=== PATIENT | female | born 1970 | race Caucasian/White ===

== ENCOUNTER 2017-08-08 09:10 | Inpatient (IN) | payer OTHER ==
--- NOTE | 2017-08-06 10:16 | RADRPT ---
PROCEDURE: Chest x-ray CLINICAL INDICATION: Preop TECHNIQUE: Chest single view COMPARISON: None FINDINGS: The heart is normal in size. The pulmonary vessels are normal in caliber. The lungs are clear. Th e costophrenic angles are sharp. The visualized bony thorax is unremarkable. IMPRESSION: No acute cardiopulmonary disease. RPTAT: HH .Zack Nowak MD, Date Time Electronically viewed and signed by .Zcak Nowak MD, MD on 08/06/2017 10:15 .W/
--- NOTE | 2017-08-07 14:25 | RADRPT ---
Vent Rate: 70 bpm RR Interval: 0 msec MI Interval: 180 msec QRS Duration: 70 msec QT Interval: 376 msec QTC Interval: 406 msec P-R-T [place]: 47 - 50 - 40 degrees Normal sinus rhythm Low voltage QRS Borderline ECG Electronically Signed By: Johan Deras [id number]
[~2017-08-08] VITALS: Ht 157.5 cm; Wt 74.6 kg
[2017-08-08] VITALS (35 sets, daily range): BP systolic 96–134; BP diastolic 55–79; PULSE 70–82; RESP 9–16; Ht 157.5 cm; Wt 74.6 kg
[~2017-08-08 09:10] MED LIST: EPHEDrine SULFATE 50 MG/5 ML SYG ONE
--- NOTE | 2017-08-08 10:46 | HPN ---
Date/Time of Note Date/Time of Note DATE: 08/08/17 TIME: 10:46 Interval H&P Admission Note Pt. seen H&P reviewed: No system changes PRECIOUS SHAY MD Aug 08, 2017 10:46
[2017-08-08] MEDS ORDERED: MIDAZOLAM 1 MG/ML 2 ML INJ ONE ×2 (11:25→15:21)
[2017-08-08] MEDS ORDERED: morphine SULFATE/PF (10 MG/10 ML) INJ ONE (11:27)
[2017-08-08] MEDS ORDERED: PHENYLephrine (100 MCG/ML) 5ML SYG ONE (11:43)
[2017-08-08] MEDS ORDERED: LIDOCAINE 2% (SDV) 5 ML INJ ONE (12:10)
[2017-08-08] MEDS ORDERED: ROCURONIUM 50 MG INJ ONE (12:10)
[2017-08-08] MEDS ORDERED: PROPOFOL 20 ML ONE (12:10)
[2017-08-08] MEDS ORDERED: SUCCINYLCHOLINE CHLORIDE 100 MG/5 ML SYG IV ONE (12:10)
[2017-08-08] MEDS ORDERED: ONDANSETRON 4 MG INJ ONE (12:26)
[2017-08-08] MEDS ORDERED: DEXAMETHASONE 4 MG/ML 1 ML INJ ONE (12:26)
[2017-08-08] MEDS ORDERED: FAMOTIDINE 20 MG INJ ONE (12:26)
[2017-08-08] MEDS ORDERED: THROMBIN 5000 UNIT VIAL ONE (13:50)
[2017-08-08] MEDS ORDERED: HYDROmorphONE (0.2 MG/ML) 10ML SYG IV PRN ×2 (14:30→15:30)
[2017-08-08] MEDS ORDERED: NALOXONE (0.4 MG/ML) INJ IV PRN (14:30)
[2017-08-08] MEDS ORDERED: FENTAnyl 50 MCG/ML VIAL IV PRN (14:30)
[2017-08-08] MEDS ORDERED: DIPHENHYDRAMINE 50 MG INJ IV PRN ×3 (14:30→15:30)
[2017-08-08] MEDS ORDERED: HYDROmorphONE 0.5 MG/0.5 ML SYG IV PRN ×2 (14:30)
[2017-08-08] MEDS ORDERED: ONDANSETRON 4 MG INJ IV PRN ×2 (14:30)
[2017-08-08] MEDS ORDERED: PROCHLORPERAZINE 10 MG INJ IV PRN (14:30)
[2017-08-08] MEDS ORDERED: MEPERIDINE 25 MG INJ IV PRN (14:30)
[2017-08-08] MEDS ORDERED: SUGAMMADEX SODIUM 200 MG/2 ML VIAL IV ONE ×2 (14:43→14:47)
[2017-08-08] MEDS ORDERED: FENTAnyl 50 MCG/ML VIAL ONE (15:05)
--- NOTE | 2017-08-08 15:16 | OPPN ---
Date/Time of Note Date/Time of Note DATE: 08/08/17 TIME: 15:13 Operative Report Planned Procedure Procedure date Aug 08, 2017 Procedure(s) Ex lap, MANNY/BSO, omentectomy, appy, lymph node dissection, tumor debulking, IP port placement. Performed by Althea Stephenson MD Energy Conservation Specialist none Pre-procedure diagnosis Pelvic mass Anesthesia Type: general spinal Post-Procedure Post-procedure diagnosis Ovarian cancer Findings ROV at 25 cm. Tumor in bladder peritoneu, and cul-de-sac, omental nodules, bulky lymph nodes in pelvic region, bilaterally. NO diaphram tumor. Prior cholecystectomy Estimated Blood Loss: 300 - 400 mls Specimen(s) uterus, cervix, ovaries, lymph nodes, omentum, peritoneum, Grafts/Implant(s) none Complication(s) none PRECIOUS STEPHENSON MD Aug 08, 2017 15:16
[2017-08-08] MEDS ORDERED: MIDAZOLAM 1 MG/ML 2 ML INJ IV PRN (15:30)
[2017-08-08 16:09] LABS: BASOPHILS % 0.2 % (0.0-2.0); EOSINOPHILS % 0.1 % (0.0-7.0); HEMATOCRIT 36.1 % (37.0-47.0); HEMOGLOBIN 11.2 g/dl (12.0-16.0); LYMPHOCYTES # 1.3 10^3/ul (0.8-2.9); LYMPHOCYTES % 11.3 % (15.0-51.0); MEAN CORPUSCULAR HEMOGLOBIN 26.8 pg (29.0-33.0); MEAN CORPUSCULAR VOLUME 86.4 fl (82.0-101.0); MEAN PLATELET VOLUME 11.1 fl (7.4-10.4); MONOCYTE # 0.3 10^3/ul (0.3-0.9); MONOCYTES % 2.5 % (0.0-11.0); NEUTROPHIL # 9.7 10^3/ul (1.6-7.5); NEUTROPHILS % 85.7 % (39.0-77.0); PLATELET COUNT 343 10^3/UL (140-415); RED BLOOD COUNT 4.18 10^6/ul (4.20-5.40); RED CELL DISTRIBUTION WIDTH 12.9 % (11.5-14.5); WHITE BLOOD COUNT 11.3 10^3/ul (4.8-10.8)
[2017-08-08 16:31] LABS: CALCIUM 7.9 mg/dl (8.4-10.2); CREATININE 0.52 mg/dl (0.44-1.00)
[2017-08-08] MEDS: D5-NS + KCL 20 MEQ 1,000 ML IV SCH ×2 (18:55→23:07)
[2017-08-08] MEDS ORDERED: FAMOTIDINE 20 MG INJ IV ONE (20:30)
[2017-08-08] MEDS: FAMOTIDINE 20 MG TAB PO SCH (20:36)
[2017-08-09 02:48] VITALS: BP 96/53; RESP 14
[2017-08-09] MEDS: D5-NS + KCL 20 MEQ 1,000 ML IV SCH ×4 (03:08→22:22)
[2017-08-09 05:11] VITALS: BP 120/57
[2017-08-09] MEDS: HYDROmorphONE 1 MG/ML SYG IV PRN ×6 (05:12→18:51)
[2017-08-09 05:51] LABS: BASOPHILS % 0.1 % (0.0-2.0); HEMATOCRIT 31.7 % (37.0-47.0); HEMOGLOBIN 9.8 g/dl (12.0-16.0); LYMPHOCYTES # 1.3 10^3/ul (0.8-2.9); LYMPHOCYTES % 12.4 % (15.0-51.0); MEAN CORPUSCULAR HEMOGLOBIN 26.5 pg (29.0-33.0); MEAN CORPUSCULAR HGB CONC 30.9 g/dl (32.0-37.0); MEAN CORPUSCULAR VOLUME 85.7 fl (82.0-101.0); MEAN PLATELET VOLUME 11.2 fl (7.4-10.4); MONOCYTE # 0.8 10^3/ul (0.3-0.9); MONOCYTES % 7.6 % (0.0-11.0); NEUTROPHIL # 8.2 10^3/ul (1.6-7.5); NEUTROPHILS % 79.6 % (39.0-77.0); PLATELET COUNT 314 10^3/UL (140-415); RED CELL DISTRIBUTION WIDTH 13.1 % (11.5-14.5); WHITE BLOOD COUNT 10.3 10^3/ul (4.8-10.8)
[2017-08-09 06:32] LABS: ALBUMIN 2.4 g/dl (3.3-4.9); ALBUMIN/GLOBULIN RATIO 0.85; BILIRUBIN,INDIRECT 0.2 mg/dl (0-1.1); BILIRUBIN,TOTAL 0.2 mg/dl (0.2-1.3); CALCIUM 8.1 mg/dl (8.4-10.2); CREATININE 0.57 mg/dl (0.44-1.00); POTASSIUM 4.9 mmol/L (3.5-5.1); TOTAL PROTEIN 5.2 g/dl (6.1-8.1)
[2017-08-09 07:44] VITALS: BP 119/61; RESP 18
[2017-08-09] MEDS: ENOXAPARIN 40 MG/0.4 ML SYG SC SCH (07:57)
[2017-08-09] MEDS: FAMOTIDINE 20 MG TAB PO SCH ×2 (09:13→21:33)
--- NOTE | 2017-08-09 11:28 | PN ---
Date/Time of Note Date/Time of Note DATE: 08/09/17 TIME: 11:09 Assessment/Plan VTE Prophylaxis VTE Prophylaxis Intervention: LMWH Lines/Catheters IV Catheter Type (from Nrsg): Saline Lock Urinary Cath still in place: Yes Reason Cath still needed: other (indicate) (Postoperative) Assessment/Plan Assessment/Plan 46-year-old female: 1. Ovarian cancer with pelvic mass, status post exploratory laparotomy with MANNY /BSO, omentectomy, appendectomy, lymph node dissection, tumor debulking and IP port placement. POD#1 Patient hemodynamically stable, currently n.p.o. on IV fluids. Right lower quadrant drain in place Pain control Follow-up further recommendations from GILL BOX OPERATOR/ONC Dr. Stephenson Prophylaxis: Lovenox for DVT prophylaxis, Pepcid for GI prophylaxis Disposition: Follow-up recommendations from Dr. Stephenson, further disposition per GILL BOX OPERATOR /ONC Subjective 24 Hr Interval Summary Free Text/Dictation Patient is POD#1 s/p Ex lap, MANNY/BSO, omentectomy, appendectomy, lymph node dissection, tumor debulking and IP port placement. Patient not passing gas yet, otherwise feels hungry and pain control is ongoing. Exam/Review of Systems Vital Signs Vitals Vital Signs Date Time Temp Pulse Resp B/P Pulse Ox O2 Delivery O2 Flow Rate FiO2 08/09/17 07:44 98.0 101 18 119/61 98 08/08/17 17:50 Nasal Cannula 3.0 Intake and Output 08/08/17 08/08/17 08/09/17 15:00 23:00 07:00 Intake Total 4400 ml 1875 ml Output Total 400 ml 400 ml 780 ml Balance -400 ml 4000 ml 1095 ml Exam Constitutional: alert, oriented, well developed Respiratory: clear to auscultation, normal air movement Cardiovascular: nl pulses, regular rate and rhythm Gastrointestinal: other (Right lower quadrant drain in place, laparotomy incision with dressing over it.), soft, tender (Diffuse) Musculoskeletal: nl extremities to inspection Extremities: normal pulses, other (No edema, clubbing or cyanosis) Neurological: CERTIFIED LACTATION EDUCATOR II-XII intact, lethargic (slightly sedated ), nl mental status, nl speech Results Result Diagram: 08/09/17 0459 08/09/17 0459 Results 24 hrs Laboratory Tests Test 08/08/17 15:30 08/09/17 04:59 08/09/17 06:43 White Blood Count 11.3 H 10.3 Red Blood Count 4.18 L 3.70 L Hemoglobin 11.2 L 9.8 L Hematocrit 36.1 L 31.7 L Mean Corpuscular Volume 86.4 85.7 Mean Corpuscular Hemoglobin 26.8 L 26.5 L Mean Corpuscular Hemoglobin Concent 31.0 L 30.9 L Red Cell Distribution Width 12.9 13.1 Platelet Count 343 314 Mean Platelet Volume 11.1 H 11.2 H Neutrophils % 85.7 H 79.6 H Lymphocytes % 11.3 L 12.4 L Monocytes % 2.5 7.6 Eosinophils % 0.1 0.0 Basophils % 0.2 0.1 Nucleated Red Blood Cells % 0.0 0.0 Neutrophils # 9.7 H 8.2 H Lymphocytes # 1.3 1.3 Monocytes # 0.3 0.8 Eosinophils # 0.0 0.0 Basophils # 0.0 0.0 Nucleated Red Blood Cells # 0.0 0.0 Sodium Level 138 142 Potassium Level 4.0 4.9 Chloride Level 103 105 Carbon Dioxide Level 29 32 H Anion Gap 10 10 Blood Urea Nitrogen 5 L 5 L Creatinine 0.52 0.57 Glucose Level 154 135 Calcium Level 7.9 L 8.1 L Total Bilirubin 0.2 Direct Bilirubin 0.00 Indirect Bilirubin 0.2 Aspartate Amino Transf (AST/SGOT) 21 Alanine Aminotransferase (ALT/SGPT) 30 Alkaline Phosphatase 56 Total Protein 5.2 L Albumin 2.4 L Globulin 2.80 Albumin/Globulin Ratio 0.85 Lab Scanned Report LAB Medications Medications Current Medications Diphenhydramine HCl (Benadryl) 25 mg Q4H PRN IV PRURITUS; Start 08/08/17 at 14 :30; Stop 08/09/17 at 11:30 Ondansetron HCl (Zofran Inj) 4 mg Q6H PRN IV NAUSEA AND/OR VOMITING; Start at 14:30; Stop 08/09/17 at 11:30 Naloxone HCl (Narcan) 0.2 mg Q2M PRN IV FOR RESP RATE 8 OR LESS; Start at 14:30; Stop 08/09/17 at 11:30 Acetaminophen/ Hydrocodone Bitart ([place] (5/325)) 1 tab Q6H PRN PO PAIN LEVEL 6 -10; Start 08/08/17 at 15:30 Acetaminophen/ Hydrocodone Bitart ([place] (10/325)) 1 tab Q6H PRN PO PAIN; Start 08/08/17 at 15:30 Diphenhydramine HCl (Benadryl) 25 mg Q6H PRN IV ITCHING; Start 08/08/17 at 15: 30 Ondansetron HCl (Zofran Inj) 4 mg Q6H PRN IV NAUSEA AND/OR VOMITING; Start at 15:30 Famotidine 20 mg 20 mg BID PO Last administered on 08/09/17 09:13; Admin Dose 20 MG; Start 08/08/17 at 21:00 Potassium Chloride/Dextrose/ Sod Cl (D5-NS + KCl 20 Meq) 1,000 ml @ 125 mls/hr Q8H IV Last administered on 08/09/17 03:08; Admin Dose 125 MLS/HR; Start at 15:07 Enoxaparin Sodium (Lovenox) 40 mg DAILY@07 SC Last administered on 08/09/17 07:57; Admin Dose 40 MG; Start 08/09/17 at 07:00 Hydromorphone HCl (Dilaudid) 1 mg Q2 PRN IV pain Last administered on 08:01; Admin Dose 1 MG; Start 08/08/17 at 20:30 EZE ASTORGA Aug 09, 2017 11:20
[2017-08-09 14:58] VITALS: BP 113/56; RESP 16
[2017-08-09] MEDS ORDERED: POTASSIUM CHLORIDE 250 ML IVPB ONE (17:00)
--- NOTE | 2017-08-09 19:15 | PN ---
Date/Time of Note Date/Time of Note DATE: 08/09/17 TIME: 19:14 Assessment/Plan VTE Prophylaxis VTE Prophylaxis Intervention: LMWH, SCD's Lines/Catheters IV Catheter Type (from Nrsg): Saline Lock Urinary Cath still in place: Yes Reason Cath still needed: other (indicate) Assessment/Plan Assessment/Plan POD #1, op findings d/w patient. Good UO. RECREATION ENGINEER, clear liquid diet, Keep belcher, Lovenox. Subjective 24 Hr Interval Summary Free Text/Dictation Poor pain control, Exam/Review of Systems Vital Signs Vitals Vital Signs Date Time Temp Pulse Resp B/P Pulse Ox O2 Delivery O2 Flow Rate FiO2 08/09/17 14:58 99.2 102 16 113/56 96 08/08/17 17:50 Nasal Cannula 3.0 Intake and Output 08/08/17 08/08/17 08/09/17 15:00 23:00 07:00 Intake Total 4400 ml 1875 ml Output Total 400 ml 400 ml 780 ml Balance -400 ml 4000 ml 1095 ml Exam Gastrointestinal: soft Results Result Diagram: 08/09/17 0459 08/09/17 0459 Results 24 hrs Laboratory Tests Test 08/09/17 04:59 08/09/17 06:43 White Blood Count 10.3 Red Blood Count 3.70 L Hemoglobin 9.8 L Hematocrit 31.7 L Mean Corpuscular Volume 85.7 Mean Corpuscular Hemoglobin 26.5 L Mean Corpuscular Hemoglobin Concent 30.9 L Red Cell Distribution Width 13.1 Platelet Count 314 Mean Platelet Volume 11.2 H Neutrophils % 79.6 H Lymphocytes % 12.4 L Monocytes % 7.6 Eosinophils % 0.0 Basophils % 0.1 Nucleated Red Blood Cells % 0.0 Neutrophils # 8.2 H Lymphocytes # 1.3 Monocytes # 0.8 Eosinophils # 0.0 Basophils # 0.0 Nucleated Red Blood Cells # 0.0 Sodium Level 142 Potassium Level 4.9 Chloride Level 105 Carbon Dioxide Level 32 H Anion Gap 10 Blood Urea Nitrogen 5 L Creatinine 0.57 Glucose Level 135 Calcium Level 8.1 L Total Bilirubin 0.2 Direct Bilirubin 0.00 Indirect Bilirubin 0.2 Aspartate Amino Transf (AST/SGOT) 21 Alanine Aminotransferase (ALT/SGPT) 30 Alkaline Phosphatase 56 Total Protein 5.2 L Albumin 2.4 L Globulin 2.80 Albumin/Globulin Ratio 0.85 Lab Scanned Report LAB Medications Medications Current Medications Acetaminophen/ Hydrocodone Bitart ([place] (5/325)) 1 tab Q6H PRN PO PAIN LEVEL 6 -10; Start 08/08/17 at 15:30 Acetaminophen/ Hydrocodone Bitart ([place] (10/325)) 1 tab Q6H PRN PO PAIN; Start 08/08/17 at 15:30 Diphenhydramine HCl (Benadryl) 25 mg Q6H PRN IV ITCHING; Start 08/08/17 at 15: 30 Ondansetron HCl (Zofran Inj) 4 mg Q6H PRN IV NAUSEA AND/OR VOMITING; Start at 15:30 Famotidine 20 mg 20 mg BID PO Last administered on 08/09/17 09:13; Admin Dose 20 MG; Start 08/08/17 at 21:00 Potassium Chloride/Dextrose/ Sod Cl (D5-NS + KCl 20 Meq) 1,000 ml @ 125 mls/hr Q8H IV Last administered on 08/09/17 13:32; Admin Dose 125 MLS/HR; Start at 15:07 Enoxaparin Sodium (Lovenox) 40 mg DAILY@07 SC Last administered on 08/09/17 07:57; Admin Dose 40 MG; Start 08/09/17 at 07:00 Hydromorphone HCl (Dilaudid) 1 mg Q2 PRN IV pain Last administered on 18:51; Admin Dose 1 MG; Start 08/08/17 at 20:30 PRECIOUS SHAY MD Aug 09, 2017 19:15
[2017-08-09] MEDS ORDERED: NALOXONE (0.4 MG/ML) INJ IV PRN (19:30)
[2017-08-09 19:40] VITALS: BP 120/57; RESP 18
[2017-08-09] MEDS: HYDROmorphONE 0.2 MG/ML PCA IV SCH (20:54)
[2017-08-10 00:01] VITALS: BP 123/65; PULSE 85; RESP 18
[2017-08-10 02:10] VITALS: BP 131/61; RESP 18
[2017-08-10 05:02] VITALS: BP 127/69; PULSE 94; RESP 19
[2017-08-10 06:38] LABS: BASOPHILS % 0.1 % (0.0-2.0); EOSINOPHILS % 0.3 % (0.0-7.0); HEMATOCRIT 33.5 % (37.0-47.0); HEMOGLOBIN 10.3 g/dl (12.0-16.0); LYMPHOCYTES # 1.4 10^3/ul (0.8-2.9); LYMPHOCYTES % 10.7 % (15.0-51.0); MEAN CORPUSCULAR HEMOGLOBIN 26.8 pg (29.0-33.0); MEAN CORPUSCULAR HGB CONC 30.7 g/dl (32.0-37.0); MEAN PLATELET VOLUME 11.5 fl (7.4-10.4); MONOCYTE # 0.9 10^3/ul (0.3-0.9); MONOCYTES % 6.8 % (0.0-11.0); NEUTROPHILS % 81.7 % (39.0-77.0); PLATELET COUNT 322 10^3/UL (140-415); RED BLOOD COUNT 3.85 10^6/ul (4.20-5.40); RED CELL DISTRIBUTION WIDTH 13.2 % (11.5-14.5); WHITE BLOOD COUNT 13.5 10^3/ul (4.8-10.8)
[2017-08-10 06:39] LABS: MAGNESIUM 1.7 mg/dl (1.7-2.5)
[2017-08-10 06:40] LABS: CALCIUM 8.2 mg/dl (8.4-10.2); CREATININE 0.52 mg/dl (0.44-1.00); POTASSIUM 4.3 mmol/L (3.5-5.1)
--- NOTE | 2017-08-10 07:15 | OPR ---
DATE OF OPERATION: 08/08/2017 PREOPERATIVE DIAGNOSES: 1. A 20 cm pelvic mass. 2. CA-125 at 35. POSTOPERATIVE DIAGNOSIS: Metastatic ovarian carcinoma. PROCEDURE: 1. Exploratory laparotomy. 2. Total abdominal hysterectomy with bilateral salpingo-oophorectomy. 3. Complete omentectomy. 4. Appendectomy. 5. Lymph node debulking. 6. Tumor debulking. 7. Intraperitoneal chemotherapy port placement. SURGEON: Althea Stephenson MD NON PROFIT JOB TITLES: None. ANESTHESIA: General endotracheal and spinal. ANESTHESIOLOGIST: Dr. Mariana Castillo ESTIMATED BLOOD LOSS: About 300 mL FINDINGS: The patient has a 20 cm complex right ovarian mass. There was tumor plaque at the right ovarian fossa and also bladder peritoneum. There was an omentum nodule that is adherent to the mass. There is a bulky pelvic lymph node in the obturator space. HISTORY: This is a 46-year-old female who presents with a 16 cm complex pelvic mass. There is a 1 cm omental nodule that was noted. No ascites. The CA-125 was at 35. She was brought in to undergo the above operation. The possibility of MANNY-BSO was discussed and surgical staging if malignant. PROCEDURE IN DETAIL: She was taken to the OR. After achievement of general and spinal anesthesia, she was placed in lithotomy position, prepped and draped in usual sterile fashion. Summers catheter was inserted by nursing staff. A vertical incision extending from suprapubic to a level above the umbilicus, carried down to the fascia. Fascia was entered, peritoneal cavity was then entered. At this time, we encountered a large 20 cm pelvic mass. It is somewhat stuck in the pelvis. There appeared to be disease involved in the right ovarian fossa. Upon further inspection, there are tumor nodules in the bladder peritoneum. At this time, a [place] retractor is placed in the abdomen. I then exteriorized the mass and pictures were taken. At this time, I am going to remove this mass first to allow better visualization. Right round ligament is encircled with 0 Vicryl suture. Retroperitoneum is grasped on the right side, opened to the pericolic gutter. Pericolic space was opened, avascular space was opened. Ureter was identified. The avascular space was present, delineated to the pelvic brim, the right IP ligament was doubly clamped and suture ligated. At this time, I am going to mobilize the mass. This mass was stuck in the right ovarian fossa. Through this process, the cystic portion ruptured, and then the mass was decompressed. Once decompressed , we were able to visualize much better, and then I proceed to elevate off the ovarian fossa and the right uteroovarian ligament was doubly clamped, cut, and doubly suture ligated. This was sent to pathology for evaluation. At this time , I then proceed to set up the [place] retractor and the abdominal wall was retracted in 4-points. At this time, it became quite clear that this is going to be a malignancy case, as there was disease in the bladder peritoneum, ovarian fossa, and there is also disease in the omentum nodule. At this time, I am going to proceed with the completion of hysterectomy first before we address the upper abdomen. Next, the left round ligament is encircled with 0 Vicryl suture. The left retroperitoneum was opened to the pericolic gutter. The left pericolic space was opened. The avascular space was then opened. The left IP ligament was then doubly clamped, cut, and doubly suture ligated. At this time, I then took the bladder flap down to pubocervical fascia. I will strip the bladder peritoneum after hysterectomy. At this time, I then proceeded to mobilize the right ovarian fossa tissue. The ureter on both sides was then dissected off the medial leaf of broad ligament. The tumor in the right ovarian fossa was then incorporated into the specimen. At this time, posteriorly, the rectovaginal septum was then developed. Next, the uterine vessel was isolated, clamped using a Z-clamp, cut and suture ligated. Ureter further dissected away laterally. Next, the cardinal ligament was then serially clamped, cut, and suture ligated over the uterosacral ligament. The uterosacral ligament was then clamped, cut, and suture ligated. At this time, I then clamped across the vagina, then amputated the vagina, and sent to pathology for evaluation. Next, I proceed to strip the bladder peritoneum off the bladder, and this came off easily, without any injury to the bladder. When the pelvic area was completed, I then explored the upper abdomen. There is no disease seen in the upper abdomen, main diaphragm or liver. At this time, I then isolated the omentum, entering the lesser sac. Gastrocolic ligament was cauterized and transected using LigaSure Impact device. The gastrocolic ligament was then reflected toward the transverse colon. The omentum was then mobilized off hepatic flexure all the way across and toward the splenic flexure. There were some suspicious tumor nodules on the omentum that were noted. Next, I then ran the small bowel from the ligament of [place] and I followed it all the way to the cecum. At the cecum level, I then take the appendix. The base of the appendix was opened. Appendectomy was performed using the Endo GI 35 mm vascular load. Mesoappendix cauterized and transected using LigaSure Impact device. Next, I then proceed to dissect the lymph nodes. Ascending colon, descending colon, were further mobilized medially. Aortic lymph node was then dissected above the pelvic brim on the left side. It is dissected all the way to the level above the inferior mesenteric artery and no suspicious adenopathy was encountered on the left. On the right side, this was dissected off the common iliac artery and then off the vena cava fat pad and off the aortic region. Next, I came down to perform the pelvic region. [place] laterally is the psoas muscle, superiorly is common iliac artery, inferiorly is circumflex vein; caudally was the obturator nerve and obturator fossa. There were several bulky nodes in this area in the external iliac artery and off the obturator space, and these were all completely debulked. At this time, I was satisfied with the procedure. The abdomen and pelvis were thoroughly irrigated, and all the retroperitoneal space and all the pedicles were hemostatic. At this time, I placed a blade in the pelvic area, brought it out through the right lower quadrant and connected to the skin. At this time, the [place] retractor was removed. I then proceeded to place an intraperitoneal chemotherapy port. A subcostal pocket was opened on the left side in the midclavicular line. Pocket was created. An 8-[place] Island[place] Bard port was placed subcutaneously. This was tunneled and entered the abdominal cavity in the level of umbilicus. The port was then situated above the fascia in the costal angle region, and this was anchored using a Prolene suture. At this time , the catheter was adequately placed in the pelvic area and the port site was closed using 3-0 Vicryl. At this time, I was satisfied with the procedure. Bowel was replaced back in normal anatomic position. Instrument count and lap counts correct. I then proceeded to close the fascia using looped PDS in a mass abdomen closure. The subcutaneous tissues were irrigated. Skin was then approximated using stainless steel kierra. At this time, the patient was cleaned, dressing applied successfully, transferred to recovery in a stable condition. Dictated By: ALTHEA KOVACS/ANDREW Conf#: [id number] DID#: [id number] MARGARITA
[2017-08-10 07:23] VITALS: BP 135/71; RESP 20
[2017-08-10] MEDS: D5-NS + KCL 20 MEQ 1,000 ML IV SCH ×2 (09:44→22:20)
[2017-08-10] MEDS: FAMOTIDINE 20 MG TAB PO SCH ×2 (09:44→19:59)
[2017-08-10] MEDS: ENOXAPARIN 40 MG/0.4 ML SYG SC SCH (10:00)
[2017-08-10] MEDS ORDERED: MAGNESIUM SULFATE 2 GM/50 ML 50 ML IVPB ONE (11:00)
--- NOTE | 2017-08-10 11:32 | PN ---
Date/Time of Note Date/Time of Note DATE: 08/10/17 TIME: 11:27 Assessment/Plan VTE Prophylaxis VTE Prophylaxis Intervention: LMWH Lines/Catheters IV Catheter Type (from Nrsg): Saline Lock Urinary Cath still in place: Yes Reason Cath still needed: other (indicate) (POD ) Assessment/Plan Assessment/Plan 46-year-old female: 1. Ovarian cancer with pelvic mass, status post exploratory laparotomy with MANNY /BSO, omentectomy, appendectomy, lymph node dissection, tumor debulking and IP port placement. POD#2 Patient hemodynamically stable, On Clears, tolerated and no flatus yet PT and encourage ambulation Continue IV fluids until bettter po intake Right lower quadrant drain in place Pain control with SOLAR SYSTEMS DESIGNER Follow-up further recommendations from DIETARY MANAGER/ONC Dr. Stephenson re dressing changes Prophylaxis: Lovenox for DVT prophylaxis, Pepcid for GI prophylaxis Disposition: PT, ambulation and follow-up recommendations from Dr. Stephenson, further disposition per DIETARY MANAGER/ONC Subjective 24 Hr Interval Summary Free Text/Dictation Patient remains stable and on SOLAR SYSTEMS DESIGNER for pain control but no used often. PT ordered and encouraging ambulation On clears and tolerated but no flatus yet Exam/Review of Systems Vital Signs Vitals Vital Signs Date Time Temp Pulse Resp B/P Pulse Ox O2 Delivery O2 Flow Rate FiO2 08/10/17 09:00 16 08/10/17 07:23 99.2 95 135/71 100 08/10/17 05:02 Nasal Cannula 08/10/17 01:48 2.0 Intake and Output 08/09/17 08/09/17 08/10/17 15:00 23:00 07:00 Intake Total 625 ml 1000 ml 1200 ml Output Total 1800 ml 2120 ml Balance 625 ml -800 ml -920 ml Exam Constitutional: alert, oriented, well developed Respiratory: clear to auscultation, normal air movement Cardiovascular: nl pulses, regular rate and rhythm Gastrointestinal: other (RLQ drain in place ), soft, tender (mild TTP ) Musculoskeletal: nl extremities to inspection Extremities: normal pulses, other (no edema, clubbing or cyanosis ) Neurological: DRILL PRESS OPERATOR II-XII intact, nl mental status, nl speech, other (strength 5 /5 ) Results Result Diagram: 08/10/17 0514 08/10/1714 Results 24 hrs Laboratory Tests Test 08/10/17 05:14 White Blood Count 13.5 #H Red Blood Count 3.85 L Hemoglobin 10.3 L Hematocrit 33.5 L Mean Corpuscular Volume 87.0 Mean Corpuscular Hemoglobin 26.8 L Mean Corpuscular Hemoglobin Concent 30.7 L Red Cell Distribution Width 13.2 Platelet Count 322 Mean Platelet Volume 11.5 H Neutrophils % 81.7 H Lymphocytes % 10.7 L Monocytes % 6.8 Eosinophils % 0.3 Basophils % 0.1 Nucleated Red Blood Cells % 0.0 Neutrophils # 11.0 H Lymphocytes # 1.4 Monocytes # 0.9 Eosinophils # 0.0 Basophils # 0.0 Nucleated Red Blood Cells # 0.0 Sodium Level 139 Potassium Level 4.3 Chloride Level 102 Carbon Dioxide Level 31 Anion Gap 10 Blood Urea Nitrogen 2 L Creatinine 0.52 Glucose Level 158 Calcium Level 8.2 L Phosphorus Level 3.0 Magnesium Level 1.7 Medications Medications Current Medications Acetaminophen/ Hydrocodone Bitart ([place] (5/325)) 1 tab Q6H PRN PO PAIN LEVEL 6 -10; Start 08/08/17 at 15:30 Acetaminophen/ Hydrocodone Bitart ([place] (10/325)) 1 tab Q6H PRN PO PAIN; Start 08/08/17 at 15:30 Diphenhydramine HCl (Benadryl) 25 mg Q6H PRN IV ITCHING; Start 08/08/17 at 15: 30 Ondansetron HCl (Zofran Inj) 4 mg Q6H PRN IV NAUSEA AND/OR VOMITING; Start at 15:30 Famotidine 20 mg 20 mg BID PO Last administered on 08/10/17 09:44; Admin Dose 20 MG; Start 08/08/17 at 21:00 Potassium Chloride/Dextrose/ Sod Cl (D5-NS + KCl 20 Meq) 1,000 ml @ 100 mls/hr Q10H IV Last administered on 08/10/17 09:44; Admin Dose 100 MLS/HR; Start at 15:07 Enoxaparin Sodium (Lovenox) 40 mg DAILY@07 SC Last administered on 08/10/17 10 :00; Admin Dose 40 MG; Start 08/09/17 at 07:00 Hydromorphone HCl (Dilaudid) 1 mg Q2 PRN IV pain Last administered on 18:51; Admin Dose 1 MG; Start 08/08/17 at 20:30 Naloxone HCl (Narcan) 0.2 mg Q2M PRN IV RR 8 BREATHS/MIN OR LESS; Start at 19:30 Hydromorphone HCl Q4PCA IV Last administered on 08/09/17 20:54; Admin Dose 6 MG; Start 08/09/17 at 19:30 Magnesium Sulfate (Magnesium Sulfate 2 Gm/50 ml) 50 ml @ 25 mls/hr ONCE ONCE IVPB ; Start 08/10/17 at 11:00; Stop 08/10/17 at 12:59 EZE ASTORGA Aug 10, 2017 11:32
[2017-08-10 13:25] VITALS: BP 130/67; RESP 20
--- NOTE | 2017-08-10 19:14 | PN ---
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 Low grade temp. Follow WBC, Lovenox, clear liquid. Subjective 24 Hr Interval Summary Free Text/Dictation Pain better, no flatus. Exam/Review of Systems Vital Signs Vitals Vital Signs Date Time Temp Pulse Resp B/P Pulse Ox O2 Delivery O2 Flow Rate FiO2 08/10/17 17:30 15 08/10/17 13:25 99.7 98 130/67 92 08/10/17 05:02 Nasal Cannula 08/10/17 01:48 2.0 Intake and Output 08/09/17 08/09/17 08/10/17 14:59 22:59 06:59 Intake Total 625 ml 1000 ml 1200 ml Output Total 1800 ml 2120 ml Balance 625 ml -800 ml -920 ml Exam Gastrointestinal: soft Results Result Diagram: 08/10/17 0514 08/10/17 0514 Results 24 hrs Laboratory Tests Test 08/10/17 05:14 White Blood Count 13.5 #H Red Blood Count 3.85 L Hemoglobin 10.3 L Hematocrit 33.5 L Mean Corpuscular Volume 87.0 Mean Corpuscular Hemoglobin 26.8 L Mean Corpuscular Hemoglobin Concent 30.7 L Red Cell Distribution Width 13.2 Platelet Count 322 Mean Platelet Volume 11.5 H Neutrophils % 81.7 H Lymphocytes % 10.7 L Monocytes % 6.8 Eosinophils % 0.3 Basophils % 0.1 Nucleated Red Blood Cells % 0.0 Neutrophils # 11.0 H Lymphocytes # 1.4 Monocytes # 0.9 Eosinophils # 0.0 Basophils # 0.0 Nucleated Red Blood Cells # 0.0 Sodium Level 139 Potassium Level 4.3 Chloride Level 102 Carbon Dioxide Level 31 Anion Gap 10 Blood Urea Nitrogen 2 L Creatinine 0.52 Glucose Level 158 Calcium Level 8.2 L Phosphorus Level 3.0 Magnesium Level 1.7 Medications Medications Current Medications Acetaminophen/ Hydrocodone Bitart ([place] (5/325)) 1 tab Q6H PRN PO PAIN LEVEL 6 -10; Start 08/08/17 at 15:30 Acetaminophen/ Hydrocodone Bitart ([place] (10/325)) 1 tab Q6H PRN PO PAIN; Start 08/08/17 at 15:30 Diphenhydramine HCl (Benadryl) 25 mg Q6H PRN IV ITCHING; Start 08/08/17 at 15: 30 Ondansetron HCl (Zofran Inj) 4 mg Q6H PRN IV NAUSEA AND/OR VOMITING; Start at 15:30 Famotidine 20 mg 20 mg BID PO Last administered on 08/10/17 09:44; Admin Dose 20 MG; Start 08/08/17 at 21:00 Potassium Chloride/Dextrose/ Sod Cl (D5-NS + KCl 20 Meq) 1,000 ml @ 100 mls/hr Q10H IV Last administered on 08/10/17 09:44; Admin Dose 100 MLS/HR; Start at 15:07 Enoxaparin Sodium (Lovenox) 40 mg DAILY@07 SC Last administered on 08/10/17 10 :00; Admin Dose 40 MG; Start 08/09/17 at 07:00 Hydromorphone HCl (Dilaudid) 1 mg Q2 PRN IV pain Last administered on 18:51; Admin Dose 1 MG; Start 08/08/17 at 20:30 Naloxone HCl (Narcan) 0.2 mg Q2M PRN IV RR 8 BREATHS/MIN OR LESS; Start at 19:30 Hydromorphone HCl (Dilaudid CONSULTING HR PROFESSIONAL) Q4PCA IV Last administered on 08/09/17 20: 54; Admin Dose 6 MG; Start 08/09/17 at 19:30 PRECIOUS SHAY MD Aug 10, 2017 19:14
[2017-08-10 20:00] VITALS: BP 122/57; RESP 20
[2017-08-10] MEDS: HYDROmorphONE 0.2 MG/ML PCA IV SCH (20:02)
[2017-08-11 02:32] VITALS: BP 107/61; RESP 20
[2017-08-11 06:10] LABS: BASOPHILS % 0.1 % (0.0-2.0); EOSINOPHILS # 0.2 10^3/ul (0.0-0.5); EOSINOPHILS % 2.2 % (0.0-7.0); HEMATOCRIT 29.3 % (37.0-47.0); HEMOGLOBIN 9.2 g/dl (12.0-16.0); LYMPHOCYTES # 1.5 10^3/ul (0.8-2.9); LYMPHOCYTES % 15.7 % (15.0-51.0); MEAN CORPUSCULAR HEMOGLOBIN 26.7 pg (29.0-33.0); MEAN CORPUSCULAR HGB CONC 31.4 g/dl (32.0-37.0); MEAN CORPUSCULAR VOLUME 84.9 fl (82.0-101.0); MEAN PLATELET VOLUME 11.1 fl (7.4-10.4); MONOCYTE # 0.6 10^3/ul (0.3-0.9); MONOCYTES % 6.7 % (0.0-11.0); NEUTROPHIL # 6.9 10^3/ul (1.6-7.5); PLATELET COUNT 299 10^3/UL (140-415); RED BLOOD COUNT 3.45 10^6/ul (4.20-5.40); WHITE BLOOD COUNT 9.3 10^3/ul (4.8-10.8)
[2017-08-11 06:30] LABS: CALCIUM 7.9 mg/dl (8.4-10.2); CREATININE 0.47 mg/dl (0.44-1.00); POTASSIUM 4.3 mmol/L (3.5-5.1)
[2017-08-11] MEDS: D5-NS + KCL 20 MEQ 1,000 ML IV SCH ×3 (06:34→18:45)
[2017-08-11] MEDS: ENOXAPARIN 40 MG/0.4 ML SYG SC SCH (06:35)
[2017-08-11 07:41] VITALS: BP 129/68; RESP 16
[2017-08-11] MEDS: FAMOTIDINE 20 MG TAB PO SCH ×2 (08:55→21:35)
--- NOTE | 2017-08-11 10:44 | PN ---
Date/Time of Note Date/Time of Note DATE: 08/11/17 TIME: 10:41 Assessment/Plan VTE Prophylaxis VTE Prophylaxis Intervention: SCD's Lines/Catheters IV Catheter Type (from Nrsg): Peripheral IV Central line still needed: Yes Urinary Cath still in place: No Assessment/Plan Assessment/Plan 46-year-old female: 1. Ovarian cancer with pelvic mass, status post exploratory laparotomy with MANNY /BSO, omentectomy, appendectomy, lymph node dissection, tumor debulking and IP port placement. POD#3 Patient hemodynamically stable, On Clears, tolerated and no flatus yet PT ambulated in the hallway yesterday. She will continue to do today. Continue IV fluids until bettter po intake Right lower quadrant drain in place Will DC JOURNEYMAN WIREMAN and change to IV push Dilaudid as needed. This was explained to the patient and her sister the bedside. Await resolution of bowel function and advance diet per Dr. Stephenson. Follow-up further recommendations from SUPPORT ARCHITECT/ONC Dr. Stephenson re dressing changes Prophylaxis: Lovenox for DVT prophylaxis, Pepcid for GI prophylaxis Disposition: PT, ambulation and follow-up recommendations from Dr. Stephenson, further disposition per SUPPORT ARCHITECT/ONC Subjective 24 Hr Interval Summary Free Text/Dictation Overall doing well. She had juice this morning and pain is well-controlled. She used the JOURNEYMAN WIREMAN only once last night between 4 and 9 AM. Her sisters at the bedside and all of their questions were answered to their satisfaction. She ambulated yesterday in the hallway without difficulty and was eager to continue ambulation today. Bowel sounds still hypoactive. Exam/Review of Systems Vital Signs Vitals Vital Signs Date Time Temp Pulse Resp B/P Pulse Ox O2 Delivery O2 Flow Rate FiO2 08/11/17 08:00 18 08/11/17 07:41 98.8 88 129/68 96 08/10/17 05:02 Nasal Cannula 08/10/17 01:48 2.0 Intake and Output 08/10/17 08/10/17 08/11/17 15:00 23:00 07:00 Intake Total 250 ml 2200 ml 1400 ml Output Total 75 ml 1580 ml 50 ml Balance 175 ml 620 ml 1350 ml Exam Constitutional: alert, oriented Psych: no complaints Head: normocephalic Eyes: nl conjunctiva ENMT: nl external ears & nose Neck: supple Respiratory: clear to auscultation Cardiovascular: regular rate and rhythm Gastrointestinal: other (faint BS), soft Extremities: normal pulses Results Result Diagram: 08/11/17 0500 08/11/17 0519 Results 24 hrs Laboratory Tests Test 08/11/17 05:00 08/11/17 05:19 White Blood Count 9.3 # Red Blood Count 3.45 L Hemoglobin 9.2 L Hematocrit 29.3 L Mean Corpuscular Volume 84.9 Mean Corpuscular Hemoglobin 26.7 L Mean Corpuscular Hemoglobin Concent 31.4 L Red Cell Distribution Width 13.0 Platelet Count 299 Mean Platelet Volume 11.1 H Neutrophils % 75.0 Lymphocytes % 15.7 Monocytes % 6.7 Eosinophils % 2.2 Basophils % 0.1 Nucleated Red Blood Cells % 0.0 Neutrophils # 6.9 Lymphocytes # 1.5 Monocytes # 0.6 Eosinophils # 0.2 Basophils # 0.0 Nucleated Red Blood Cells # 0.0 Sodium Level 141 Potassium Level 4.3 Chloride Level 103 Carbon Dioxide Level 31 Anion Gap 11 Blood Urea Nitrogen 2 L Creatinine 0.47 Glucose Level 113 # Calcium Level 7.9 L Magnesium Level 2.0 Medications Medications Current Medications Acetaminophen/ Hydrocodone Bitart ([place] (5/325)) 1 tab Q6H PRN PO PAIN LEVEL 6 -10; Start 08/08/17 at 15:30 Acetaminophen/ Hydrocodone Bitart ([place] (10/325)) 1 tab Q6H PRN PO PAIN; Start 08/08/17 at 15:30 Diphenhydramine HCl (Benadryl) 25 mg Q6H PRN IV ITCHING; Start 08/08/17 at 15: 30 Ondansetron HCl (Zofran Inj) 4 mg Q6H PRN IV NAUSEA AND/OR VOMITING; Start at 15:30 Famotidine 20 mg 20 mg BID PO Last administered on 08/11/17 08:55; Admin Dose 20 MG; Start 08/08/17 at 21:00 Potassium Chloride/Dextrose/ Sod Cl (D5-NS + KCl 20 Meq) 1,000 ml @ 100 mls/hr Q10H IV Last administered on 08/11/17 06:34; Admin Dose 100 MLS/HR; Start at 15:07 Enoxaparin Sodium (Lovenox) 40 mg DAILY@07 SC Last administered on 08/11/17 06 :35; Admin Dose 40 MG; Start 08/09/17 at 07:00 Hydromorphone HCl (Dilaudid) 1 mg Q2 PRN IV pain Last administered on 18:51; Admin Dose 1 MG; Start 08/08/17 at 20:30 Naloxone HCl (Narcan) 0.2 mg Q2M PRN IV RR 8 BREATHS/MIN OR LESS; Start at 19:30 Hydromorphone HCl (Dilaudid JOURNEYMAN WIREMAN) Q4PCA IV Last administered on 08/10/17 20:02 ; Admin Dose 6 MG; Start 08/09/17 at 19:30 BUD WELLS MD Aug 11, 2017 10:44
[2017-08-11] MEDS ORDERED: HYDROmorphONE 0.5 MG/0.5 ML SYG IV PRN (11:00)
[2017-08-11 14:34] VITALS: BP 131/68; RESP 16
[2017-08-11] MEDS ORDERED: ACETAMINOPHEN 325 MG TAB PO PRN (15:30)
[2017-08-11] MEDS: HYDROmorphONE 1 MG/ML SYG IV PRN (17:24)
--- NOTE | 2017-08-11 19:12 | PN ---
Date/Time of Note Date/Time of Note DATE: 08/11/17 TIME: 19:11 Assessment/Plan VTE Prophylaxis VTE Prophylaxis Intervention: LMWH, SCD's Lines/Catheters IV Catheter Type (from Nrsg): Peripheral IV Urinary Cath still in place: No Assessment/Plan Assessment/Plan POD #3, d/c belcher in AM, advance diet. Subjective 24 Hr Interval Summary Free Text/Dictation No flatus, but no nausea Exam/Review of Systems Vital Signs Vitals Vital Signs Date Time Temp Pulse Resp B/P Pulse Ox O2 Delivery O2 Flow Rate FiO2 08/11/17 14:34 99.5 89 16 131/68 96 08/10/17 05:02 Nasal Cannula 08/10/17 01:48 2.0 Intake and Output 08/10/17 08/10/17 08/11/17 15:00 23:00 07:00 Intake Total 250 ml 2200 ml 1400 ml Output Total 75 ml 1580 ml 50 ml Balance 175 ml 620 ml 1350 ml Exam Gastrointestinal: soft Results Result Diagram: 08/11/17 0500 08/11/17 0519 Results 24 hrs Laboratory Tests Test 08/11/17 05:00 08/11/17 05:19 White Blood Count 9.3 # Red Blood Count 3.45 L Hemoglobin 9.2 L Hematocrit 29.3 L Mean Corpuscular Volume 84.9 Mean Corpuscular Hemoglobin 26.7 L Mean Corpuscular Hemoglobin Concent 31.4 L Red Cell Distribution Width 13.0 Platelet Count 299 Mean Platelet Volume 11.1 H Neutrophils % 75.0 Lymphocytes % 15.7 Monocytes % 6.7 Eosinophils % 2.2 Basophils % 0.1 Nucleated Red Blood Cells % 0.0 Neutrophils # 6.9 Lymphocytes # 1.5 Monocytes # 0.6 Eosinophils # 0.2 Basophils # 0.0 Nucleated Red Blood Cells # 0.0 Sodium Level 141 Potassium Level 4.3 Chloride Level 103 Carbon Dioxide Level 31 Anion Gap 11 Blood Urea Nitrogen 2 L Creatinine 0.47 Glucose Level 113 # Calcium Level 7.9 L Magnesium Level 2.0 Medications Medications Current Medications Acetaminophen/ Hydrocodone Bitart ([place] (5/325)) 1 tab Q6H PRN PO PAIN LEVEL 6 -10; Start 08/08/17 at 15:30 Acetaminophen/ Hydrocodone Bitart ([place] (10/325)) 1 tab Q6H PRN PO PAIN; Start 08/08/17 at 15:30 Diphenhydramine HCl (Benadryl) 25 mg Q6H PRN IV ITCHING; Start 08/08/17 at 15: 30 Ondansetron HCl (Zofran Inj) 4 mg Q6H PRN IV NAUSEA AND/OR VOMITING; Start at 15:30 Famotidine 20 mg 20 mg BID PO Last administered on 08/11/17 08:55; Admin Dose 20 MG; Start 08/08/17 at 21:00 Potassium Chloride/Dextrose/ Sod Cl (D5-NS + KCl 20 Meq) 1,000 ml @ 100 mls/hr Q10H IV Last administered on 08/11/17 18:45; Admin Dose 100 MLS/HR; Start at 15:07 Enoxaparin Sodium (Lovenox) 40 mg DAILY@07 SC Last administered on 08/11/17 06 :35; Admin Dose 40 MG; Start 08/09/17 at 07:00 Hydromorphone HCl (Dilaudid) 1 mg Q2 PRN IV pain Last administered on 17:24; Admin Dose 1 MG; Start 08/08/17 at 20:30 Naloxone HCl (Narcan) 0.2 mg Q2M PRN IV RR 8 BREATHS/MIN OR LESS; Start at 19:30 Hydromorphone HCl (Dilaudid) 0.2 mg Q3H PRN IV PAIN Last administered on 14:23; Admin Dose 0.2 MG; Start 08/11/17 at 11:00 Acetaminophen (Tylenol Tab) 650 mg Q4H PRN PO PAIN AND OR ELEVATED TEMP Last administered on 08/11/17 15:10; Admin Dose 650 MG; Start 08/11/17 at 15:30 PRECIOUS SHAY MD Aug 11, 2017 19:11
[2017-08-11 20:19] VITALS: BP 114/57; RESP 16
[2017-08-12] MEDS: HYDROmorphONE 1 MG/ML SYG IV PRN (00:56)
[2017-08-12 02:27] VITALS: BP 125/67; RESP 16
[2017-08-12] MEDS: D5-NS + KCL 20 MEQ 1,000 ML IV SCH ×2 (04:38→15:05)
[2017-08-12 05:33] LABS: BASOPHILS % 0.1 % (0.0-2.0); EOSINOPHILS # 0.2 10^3/ul (0.0-0.5); EOSINOPHILS % 2.8 % (0.0-7.0); HEMATOCRIT 31.8 % (37.0-47.0); LYMPHOCYTES # 1.4 10^3/ul (0.8-2.9); LYMPHOCYTES % 16.4 % (15.0-51.0); MEAN CORPUSCULAR HEMOGLOBIN 26.7 pg (29.0-33.0); MEAN CORPUSCULAR HGB CONC 31.4 g/dl (32.0-37.0); MEAN CORPUSCULAR VOLUME 84.8 fl (82.0-101.0); MEAN PLATELET VOLUME 10.7 fl (7.4-10.4); MONOCYTE # 0.6 10^3/ul (0.3-0.9); MONOCYTES % 7.1 % (0.0-11.0); NEUTROPHIL # 6.4 10^3/ul (1.6-7.5); NEUTROPHILS % 73.4 % (39.0-77.0); PLATELET COUNT 368 10^3/UL (140-415); RED BLOOD COUNT 3.75 10^6/ul (4.20-5.40); RED CELL DISTRIBUTION WIDTH 12.9 % (11.5-14.5); WHITE BLOOD COUNT 8.7 10^3/ul (4.8-10.8)
[2017-08-12 05:52] LABS: CALCIUM 8.3 mg/dl (8.4-10.2); CREATININE 0.53 mg/dl (0.44-1.00); MAGNESIUM 1.8 mg/dl (1.7-2.5); POTASSIUM 4.1 mmol/L (3.5-5.1)
[2017-08-12] MEDS: HYDROCODONE/APAP (5/325) TAB PO PRN ×2 (05:59→12:32)
[2017-08-12] MEDS: ENOXAPARIN 40 MG/0.4 ML SYG SC SCH (06:02)
[2017-08-12 07:41] VITALS: BP 121/67; RESP 16
[2017-08-12] MEDS: FAMOTIDINE 20 MG TAB PO SCH ×2 (08:34→20:39)
--- NOTE | 2017-08-12 13:06 | PN ---
Date/Time of Note Date/Time of Note DATE: 08/12/17 TIME: 13:01 Assessment/Plan VTE Prophylaxis VTE Prophylaxis Intervention: ambulation Lines/Catheters IV Catheter Type (from Nrsg): Peripheral IV Central line still needed: No Urinary Cath still in place: Yes Reason Cath still needed: pres ulcer contaminated by urine Assessment/Plan Assessment/Plan 46-year-old female: 1. Ovarian cancer with pelvic mass, status post exploratory laparotomy with MANNY /BSO, omentectomy, appendectomy, lymph node dissection, tumor debulking and IP port placement. POD#4 Patient hemodynamically stable, Tolerating soft diet. No bowel movement as of yet. PT ambulated in the hallway yesterday. She will continue to do today. Continue IV fluids until bettter po intake Right lower quadrant drain in place Pain well managed on IV push Dilaudid as needed. Await resolution of bowel function and advance diet per Dr. Stephenson. Follow-up further recommendations from FAMILY COACH/ONC Dr. Stephenson re dressing changes Prophylaxis: Lovenox for DVT prophylaxis, Pepcid for GI prophylaxis Disposition: PT, ambulation and follow-up recommendations from Dr. Stephenson, further disposition per FAMILY COACH/ONC Subjective 24 Hr Interval Summary Free Text/Dictation Doing well today. She ambulated in the hallway yesterday and stated that she had flatus. Is able to eat approximately 60% of her breakfast and about 50% of her lunch today. Overall she is feeling better. No bowel movement as of yet. Her pain is well-controlled with IV and oral medications. Exam/Review of Systems Vital Signs Vitals Vital Signs Date Time Temp Pulse Resp B/P Pulse Ox O2 Delivery O2 Flow Rate FiO2 08/12/17 07:41 98.1 87 16 121/67 97 08/10/17 05:02 Nasal Cannula 08/10/17 01:48 2.0 Intake and Output 08/11/17 08/11/17 08/12/17 15:00 23:00 07:00 Intake Total 600 ml 2420 ml 1720 ml Output Total 1200 ml 2675 ml 1035 ml Balance -600 ml -255 ml 685 ml Exam Constitutional: alert, oriented Psych: no complaints Head: normocephalic Eyes: nl conjunctiva ENMT: nl external ears & nose Neck: supple Respiratory: clear to auscultation Cardiovascular: regular rate and rhythm Gastrointestinal: other (Dressing is clean, dry and intact.), soft Extremities: normal pulses Neurological: RETIREMENT CONSULTANT II-XII intact Results Result Diagram: 08/12/17 0455 08/12/17 0455 Results 24 hrs Laboratory Tests Test 08/12/17 04:55 White Blood Count 8.7 Red Blood Count 3.75 L Hemoglobin 10.0 L Hematocrit 31.8 L Mean Corpuscular Volume 84.8 Mean Corpuscular Hemoglobin 26.7 L Mean Corpuscular Hemoglobin Concent 31.4 L Red Cell Distribution Width 12.9 Platelet Count 368 # Mean Platelet Volume 10.7 H Neutrophils % 73.4 Lymphocytes % 16.4 Monocytes % 7.1 Eosinophils % 2.8 Basophils % 0.1 Nucleated Red Blood Cells % 0.0 Neutrophils # 6.4 Lymphocytes # 1.4 Monocytes # 0.6 Eosinophils # 0.2 Basophils # 0.0 Nucleated Red Blood Cells # 0.0 Sodium Level 142 Potassium Level 4.1 Chloride Level 105 Carbon Dioxide Level 32 H Anion Gap 9 Blood Urea Nitrogen 4 L Creatinine 0.53 Glucose Level 107 Calcium Level 8.3 L Magnesium Level 1.8 Medications Medications Current Medications Acetaminophen/ Hydrocodone Bitart ([place] (5/325)) 1 tab Q6H PRN PO PAIN LEVEL 6 -10 Last administered on 08/12/17 12:32; Admin Dose 1 TAB; Start 08/08/17 at 15:30 Acetaminophen/ Hydrocodone Bitart ([place] (10/325)) 1 tab Q6H PRN PO PAIN; Start 08/08/17 at 15:30 Diphenhydramine HCl (Benadryl) 25 mg Q6H PRN IV ITCHING; Start 08/08/17 at 15: 30 Ondansetron HCl (Zofran Inj) 4 mg Q6H PRN IV NAUSEA AND/OR VOMITING; Start at 15:30 Famotidine 20 mg 20 mg BID PO Last administered on 08/12/17 08:34; Admin Dose 20 MG; Start 08/08/17 at 21:00 Potassium Chloride/Dextrose/ Sod Cl (D5-NS + KCl 20 Meq) 1,000 ml @ 75 mls/hr [id number] IV Last administered on 08/12/17 04:38; Admin Dose 75 MLS/HR; Start 08/08/17 at 15:07 Enoxaparin Sodium (Lovenox) 40 mg DAILY@07 SC Last administered on 08/12/17 06 :02; Admin Dose 40 MG; Start 08/09/17 at 07:00 Naloxone HCl (Narcan) 0.2 mg Q2M PRN IV RR 8 BREATHS/MIN OR LESS; Start at 19:30 Acetaminophen (Tylenol Tab) 650 mg Q4H PRN PO PAIN AND OR ELEVATED TEMP Last administered on 08/11/17 15:10; Admin Dose 650 MG; Start 08/11/17 at 15:30 Hydromorphone HCl (Dilaudid) 1 mg Q2H PRN IV pain Last administered on 00:56; Admin Dose 1 MG; Start 08/11/17 at 22:00 BUD WELLS MD Aug 12, 2017 13:06
[2017-08-12 15:13] VITALS: BP 122/63; RESP 16
[2017-08-12] MEDS: HYDROCODONE/APAP (10/325) TAB PO PRN ×2 (16:06→23:40)
[2017-08-12] MEDS ORDERED: HYDROmorphONE 2 MG TAB PO PRN (18:00)
[2017-08-12] MEDS ORDERED: HARD FAT/PHENYLEPHRINE SUPP PR PRN (18:00)
[2017-08-12 19:13] VITALS: BP 138/69; RESP 18
[2017-08-13] MEDS: D5-NS + KCL 20 MEQ 1,000 ML IV SCH (00:37)
[2017-08-13 01:56] VITALS: BP 132/72; RESP 18
[2017-08-13 06:08] LABS: BASOPHILS % 0.2 % (0.0-2.0); EOSINOPHILS # 0.3 10^3/ul (0.0-0.5); EOSINOPHILS % 4.4 % (0.0-7.0); HEMATOCRIT 29.4 % (37.0-47.0); HEMOGLOBIN 9.4 g/dl (12.0-16.0); LYMPHOCYTES # 1.2 10^3/ul (0.8-2.9); LYMPHOCYTES % 17.6 % (15.0-51.0); MEAN CORPUSCULAR HEMOGLOBIN 27.1 pg (29.0-33.0); MEAN CORPUSCULAR VOLUME 84.7 fl (82.0-101.0); MEAN PLATELET VOLUME 10.4 fl (7.4-10.4); MONOCYTE # 0.6 10^3/ul (0.3-0.9); MONOCYTES % 8.9 % (0.0-11.0); NEUTROPHIL # 4.5 10^3/ul (1.6-7.5); NEUTROPHILS % 68.4 % (39.0-77.0); PLATELET COUNT 365 10^3/UL (140-415); RED BLOOD COUNT 3.47 10^6/ul (4.20-5.40); WHITE BLOOD COUNT 6.6 10^3/ul (4.8-10.8)
[2017-08-13] MEDS: ENOXAPARIN 40 MG/0.4 ML SYG SC SCH (06:16)
[2017-08-13 06:51] LABS: CALCIUM 8.4 mg/dl (8.4-10.2); CREATININE 0.52 mg/dl (0.44-1.00)
[2017-08-13 07:33] VITALS: BP 131/63; RESP 16
[2017-08-13] MEDS: HYDROCODONE/APAP (10/325) TAB PO PRN ×2 (08:53→15:01)
[2017-08-13] MEDS: FAMOTIDINE 20 MG TAB PO SCH ×2 (08:53→22:09)
--- NOTE | 2017-08-13 10:59 | PN ---
Date/Time of Note Date/Time of Note DATE: 08/13/17 TIME: 10:43 Assessment/Plan VTE Prophylaxis VTE Prophylaxis Intervention: LMWH Lines/Catheters IV Catheter Type (from Nrs): Peripheral IV Urinary Cath still in place: No Assessment/Plan Assessment/Plan 46-year-old female: 1. Ovarian cancer with pelvic mass, status post exploratory laparotomy with MANNY /BSO, omentectomy, appendectomy, lymph node dissection, tumor debulking and IP port placement. POD#5 Patient doing much better, pain is actually fairly controlled with oral pain medication based on nursing report. Patient tolerating regular diet. Passing gas but no bowel movement yet. Will add bowel regimen. DC IV fluids, Summers catheter discontinued, encourage ambulation Follow-up further recommendations from FINANCIAL UNDERWRITER/ONC, Dr. Stephenson re: this patient going home with the drain, currently plan for discharge planning within the next 24 hours. Prophylaxis: Lovenox for DVT prophylaxis, Pepcid for GI prophylaxis Disposition: Encouraging and follow-up recommendations from Dr. Stephenson, regarding discharge planning in the next 24 hours hopefully. Patient likely to go home with the drain. Subjective 24 Hr Interval Summary Free Text/Dictation Patient doing better today, sitting up in chair, ambulating and doing stairs now , pain still to be controlled. No bowel movement but passing gas. Drain in place. Likely discharge planning in the next 24 hours if okay with surgeon. Diet advanced over the weekend. Exam/Review of Systems Vital Signs Vitals Vital Signs Date Time Temp Pulse Resp B/P Pulse Ox O2 Delivery O2 Flow Rate FiO2 08/13/17 07:33 98.3 82 16 131/63 99 08/10/17 05:02 Nasal Cannula 08/10/17 01:48 2.0 Intake and Output 08/12/17 08/12/17 08/13/17 15:00 23:00 07:00 Intake Total 2245 ml 1510 ml Output Total 1870 ml 350 ml Balance 375 ml 1160 ml Exam Constitutional: alert, oriented, well developed Respiratory: clear to auscultation, normal air movement Cardiovascular: nl pulses, regular rate and rhythm Gastrointestinal: other (Drain in place. Mild to moderate tenderness to palpation around incision sites.), soft Extremities: normal pulses, other (No edema, clubbing or cyanosis) Neurological: PHYSICAL FITNESS TEACHER II-XII intact, nl mental status, nl speech, nl strength Results Result Diagram: 08/13/1718 08/13/17 0518 Results 24 hrs Laboratory Tests Test 08/13/17 05:18 White Blood Count 6.6 # Red Blood Count 3.47 L Hemoglobin 9.4 L Hematocrit 29.4 L Mean Corpuscular Volume 84.7 Mean Corpuscular Hemoglobin 27.1 L Mean Corpuscular Hemoglobin Concent 32.0 Red Cell Distribution Width 13.0 Platelet Count 365 Mean Platelet Volume 10.4 Neutrophils % 68.4 Lymphocytes % 17.6 Monocytes % 8.9 Eosinophils % 4.4 Basophils % 0.2 Nucleated Red Blood Cells % 0.0 Neutrophils # 4.5 Lymphocytes # 1.2 Monocytes # 0.6 Eosinophils # 0.3 Basophils # 0.0 Nucleated Red Blood Cells # 0.0 Sodium Level 143 Potassium Level 4.0 Chloride Level 105 Carbon Dioxide Level 31 Anion Gap 11 Blood Urea Nitrogen 4 L Creatinine 0.52 Glucose Level 101 Calcium Level 8.4 Medications Medications Current Medications Acetaminophen/ Hydrocodone Bitart ([place] (5/325)) 1 tab Q6H PRN PO PAIN LEVEL 6 -10 Last administered on 08/12/17 12:32; Admin Dose 1 TAB; Start 08/08/17 at 15:30 Acetaminophen/ Hydrocodone Bitart ([place] (10/325)) 1 tab Q6H PRN PO PAIN Last administered on 08/13/17 08:53; Admin Dose 1 TAB; Start 08/08/17 at 15:30 Diphenhydramine HCl (Benadryl) 25 mg Q6H PRN IV ITCHING; Start 08/08/17 at 15: 30 Ondansetron HCl (Zofran Inj) 4 mg Q6H PRN IV NAUSEA AND/OR VOMITING; Start at 15:30 Famotidine 20 mg 20 mg BID PO Last administered on 08/13/17 08:53; Admin Dose 20 MG; Start 08/08/17 at 21:00 Potassium Chloride/Dextrose/ Sod Cl (D5-NS + KCl 20 Meq) 1,000 ml @ 75 mls/hr [id number] IV Last administered on 08/13/17 00:37; Admin Dose 75 MLS/HR; Start 08/08/17 at 15:07 Enoxaparin Sodium (Lovenox) 40 mg DAILY@07 SC Last administered on 08/13/17 06 :16; Admin Dose 40 MG; Start 08/09/17 at 07:00 Naloxone HCl (Narcan) 0.2 mg Q2M PRN IV RR 8 BREATHS/MIN OR LESS; Start at 19:30 Acetaminophen (Tylenol Tab) 650 mg Q4H PRN PO PAIN AND OR ELEVATED TEMP Last administered on 08/11/17 15:10; Admin Dose 650 MG; Start 08/11/17 at 15:30 Hydromorphone HCl (Dilaudid) 1 mg Q2H PRN IV pain Last administered on 00:56; Admin Dose 1 MG; Start 08/11/17 at 22:00 Hard Fat/ Phenylephrine (Anusol Supp) 1 supp TID PRN [place] HEMORROID PAIN/ITCHING Last administered on 08/13/17 08:53; Admin Dose 1 SUPP; Start 08/12/17 at 18:00 Hydromorphone HCl (Dilaudid) 1 mg Q6H PRN PO PAIN LEVEL 8-10; Start 08/12/17 at 18:00 EZE ASTORGA Aug 13, 2017 10:53
[2017-08-13] MEDS ORDERED: BISACODYL (EC) 5 MG TAB PO PRN (11:00)
[2017-08-13] MEDS ORDERED: MAGNESIUM HYDROXIDE 30ML CUP PO PRN (11:00)
[2017-08-13] MEDS ORDERED: DOCUSATE SODIUM 100 MG CAP PO PRN (11:00)
[2017-08-13 15:52] VITALS: BP 137/71; RESP 16
[2017-08-13] MEDS: HYDROmorphONE 1 MG/ML SYG IV PRN ×3 (16:04→22:56)
--- NOTE | 2017-08-13 18:14 | PN ---
Date/Time of Note Date/Time of Note DATE: 08/13/17 TIME: 18:13 Assessment/Plan VTE Prophylaxis VTE Prophylaxis Intervention: LMWH, SCD's Lines/Catheters IV Catheter Type (from Nrsg): Peripheral IV Urinary Cath still in place: No Assessment/Plan Assessment/Plan Post op ileus, ducolax suppository, KUB tomorow. Subjective 24 Hr Interval Summary Free Text/Dictation N&V TODAY, no flatus. Exam/Review of Systems Vital Signs Vitals Vital Signs Date Time Temp Pulse Resp B/P Pulse Ox O2 Delivery O2 Flow Rate FiO2 08/13/17 15:52 98.4 87 16 137/71 94 08/10/17 05:02 Nasal Cannula 08/10/17 01:48 2.0 Intake and Output 08/12/17 08/12/17 08/13/17 15:00 23:00 07:00 Intake Total 2245 ml 1510 ml Output Total 1870 ml 350 ml Balance 375 ml 1160 ml Exam Gastrointestinal: soft Results Result Diagram: 08/13/17 0518 08/13/17 0518 Results 24 hrs Laboratory Tests Test 08/13/17 05:18 White Blood Count 6.6 # Red Blood Count 3.47 L Hemoglobin 9.4 L Hematocrit 29.4 L Mean Corpuscular Volume 84.7 Mean Corpuscular Hemoglobin 27.1 L Mean Corpuscular Hemoglobin Concent 32.0 Red Cell Distribution Width 13.0 Platelet Count 365 Mean Platelet Volume 10.4 Neutrophils % 68.4 Lymphocytes % 17.6 Monocytes % 8.9 Eosinophils % 4.4 Basophils % 0.2 Nucleated Red Blood Cells % 0.0 Neutrophils # 4.5 Lymphocytes # 1.2 Monocytes # 0.6 Eosinophils # 0.3 Basophils # 0.0 Nucleated Red Blood Cells # 0.0 Sodium Level 143 Potassium Level 4.0 Chloride Level 105 Carbon Dioxide Level 31 Anion Gap 11 Blood Urea Nitrogen 4 L Creatinine 0.52 Glucose Level 101 Calcium Level 8.4 Medications Medications Current Medications Acetaminophen/ Hydrocodone Bitart ([place] (5/325)) 1 tab Q6H PRN PO PAIN LEVEL 6 -10 Last administered on 08/12/17t 12:32; Admin Dose 1 TAB; Start 08/08/17 at 15:30 Acetaminophen/ Hydrocodone Bitart ([place] (10/325)) 1 tab Q6H PRN PO PAIN Last administered on 08/13/17 15:01; Admin Dose 1 TAB; Start 08/08/17 at 15:30 Diphenhydramine HCl (Benadryl) 25 mg Q6H PRN IV ITCHING; Start 08/08/17 at 15: 30 Ondansetron HCl (Zofran Inj) 4 mg Q6H PRN IV NAUSEA AND/OR VOMITING; Start at 15:30 Famotidine (Pepcid) 20 mg BID PO Last administered on 08/13/17 08:53; Admin Dose 20 MG; Start 08/08/17 at 21:00 Enoxaparin Sodium (Lovenox) 40 mg DAILY@07 SC Last administered on 08/13/17 06 :16; Admin Dose 40 MG; Start 08/09/17 at 07:00 Naloxone HCl (Narcan) 0.2 mg Q2M PRN IV RR 8 BREATHS/MIN OR LESS; Start at 19:30 Acetaminophen (Tylenol Tab) 650 mg Q4H PRN PO PAIN AND OR ELEVATED TEMP Last administered on 08/11/17 15:10; Admin Dose 650 MG; Start 08/11/17 at 15:30 Hydromorphone HCl (Dilaudid) 1 mg Q2H PRN IV pain Last administered on 16:04; Admin Dose 1 MG; Start 08/11/17 at 22:00 Hard Fat/ Phenylephrine (Anusol Supp) 1 supp TID PRN [place] HEMORROID PAIN/ITCHING Last administered on 08/13/17 08:53; Admin Dose 1 SUPP; Start 08/12/17 at 18:00 Hydromorphone HCl (Dilaudid) 1 mg Q6H PRN PO PAIN LEVEL 8-10; Start 08/12/17 at 18:00 Docusate Sodium (Colace) 100 mg BID PRN PO CONSTIPATION Last administered on 12:54; Admin Dose 100 MG; Start 08/13/17 at 11:00 Magnesium Hydroxide (Milk Of Mag) 30 ml DAILY PRN PO CONSTIPATION; Start at 11:00 Bisacodyl (Dulcolax) 10 mg DAILY PRN PO CONSTIPATION Last administered on 12:54; Admin Dose 10 MG; Start 08/13/17 at 11:00 PRECIOUS SHAY MD Aug 13, 2017 18:14
[2017-08-13] MEDS ORDERED: BISACODYL 10 MG SUPP PR ONE (18:30)
[2017-08-13 19:31] VITALS: BP 138/73; RESP 18
[2017-08-13] MEDS: ONDANSETRON 4 MG INJ IV PRN (22:55)
[2017-08-14 01:40] VITALS: BP 126/72; RESP 18
[2017-08-14 06:01] LABS: BASOPHILS % 0.1 % (0.0-2.0); EOSINOPHILS # 0.1 10^3/ul (0.0-0.5); EOSINOPHILS % 1.7 % (0.0-7.0); HEMOGLOBIN 11.9 g/dl (12.0-16.0); LYMPHOCYTES # 1.2 10^3/ul (0.8-2.9); LYMPHOCYTES % 14.6 % (15.0-51.0); MEAN CORPUSCULAR HEMOGLOBIN 26.2 pg (29.0-33.0); MEAN CORPUSCULAR HGB CONC 31.3 g/dl (32.0-37.0); MEAN CORPUSCULAR VOLUME 83.7 fl (82.0-101.0); MEAN PLATELET VOLUME 10.1 fl (7.4-10.4); MONOCYTE # 0.5 10^3/ul (0.3-0.9); MONOCYTES % 6.5 % (0.0-11.0); NEUTROPHILS % 76.3 % (39.0-77.0); PLATELET COUNT 515 10^3/UL (140-415); RED BLOOD COUNT 4.54 10^6/ul (4.20-5.40); RED CELL DISTRIBUTION WIDTH 13.1 % (11.5-14.5); WHITE BLOOD COUNT 7.9 10^3/ul (4.8-10.8)
[2017-08-14] MEDS: ENOXAPARIN 40 MG/0.4 ML SYG SC SCH (06:03)
[2017-08-14] MEDS ORDERED: BISACODYL 10 MG SUPP PR ONE (06:05)
[2017-08-14 06:40] LABS: CALCIUM 9.5 mg/dl (8.4-10.2); CREATININE 0.65 mg/dl (0.44-1.00); POTASSIUM 4.8 mmol/L (3.5-5.1)
[2017-08-14 07:23] VITALS: BP 148/78; RESP 20
[2017-08-14] MEDS: FAMOTIDINE 20 MG TAB PO SCH ×2 (09:00→21:00)
[2017-08-14] MEDS: ONDANSETRON 4 MG INJ IV PRN ×2 (09:08→13:45)
[2017-08-14] MEDS ORDERED: METOPROLOL 25 MG TAB ONE (09:17)
--- NOTE | 2017-08-14 10:26 | RADRPT ---
PROCEDURE: XR Abdomen. CLINICAL INDICATION: Postoperative. Nausea and vomiting. TECHNIQUE: Two views. AP supine and AP erect. COMPARISON: None. FINDINGS: A small amount of free air is present under the right hemidiaphragm related to the recent surgery. V ertical skin kierra are noted in the lower abdomen and pelvis. A surgical drain is present in the r ight side of the abdomen and in the pelvis. An implanted port catheter is noted within port in the l eft upper quadrant and the catheter extending into the pelvis. There is mild gaseous distension of a loop of small bowel in the left upper quadrant which may indic ate ileus or obstruction. Gas is present in the colon. There are no abnormal calcifications overlying the urinary tracts. There has been open reduction and internal fixation of the right femur with a jaylene in the shaft and a screw in the intertrochanteric region. IMPRESSION: 1. Postoperative changes. 2. Small bowel ileus or obstruction. Follow-up advised. 3. Prior right femur surgery. RPTAT: QQ .Jomar Daily MD, MD Date Time Electronically viewed and signed by .Jomar Daily MD, on 08/14/2017 10:26 .R/
[2017-08-14] MEDS: POLYETHYLENE GLYCOL 17 GM PACKET PO SCH (13:45)
[2017-08-14 13:55] VITALS: BP 150/75; RESP 20
--- NOTE | 2017-08-14 15:53 | PN ---
Date/Time of Note Date/Time of Note DATE: 08/14/17 TIME: 15:43 Assessment/Plan VTE Prophylaxis VTE Prophylaxis Intervention: LMWH Lines/Catheters IV Catheter Type (from [facility]): Saline Lock Urinary Cath still in place: No Assessment/Plan Assessment/Plan 46-year-old female: 1. Ovarian cancer with pelvic mass, status post exploratory laparotomy with MANNY /BSO, omentectomy, appendectomy, lymph node dissection, tumor debulking and IP port placement. POD#6. KUB last night showing post op ileus. Patient unfortunately now with ileus, she was having nausea vomiting this morning despite having a small bowel movement. Continue primarily clear liquid diet, ambulation, bowel regimen. If ongoing symptoms in the next 24 hours, CAT scan of the abdomen and pelvis with p.o. and IV contrast will be ordered. WBC within normal, patient otherwise doing better with better controlled pain. Some flatus still, small bowel movement this morning, still with nausea. We will keep encouraging ambulation, if patient still having difficulty tolerating food, will resume IV fluids along with repeat CAT scan abdomen/ pelvis. Follow-up further recommendations from [facility]IOLOG[facility] TRANSPORTER/ONC. Prophylaxis: Lovenox for DVT prophylaxis, Pepcid for GI prophylaxis Disposition: Encouraging ambulation, bowel regimen, additional imaging depending on how patient tolerates diet. Subjective 24 Hr Interval Summary Free Text/Dictation Patient last night started having episodes of nausea and vomiting, KUB early this morning showed postop ileus. She is passing some gas and had a small bowel movement this morning. She still having some nausea and only taking liquid. We will continue to monitor depending on symptoms she may need a CAT scan abdomen/pelvis done. Exam/Review of Systems Vital Signs Vitals Vital Signs Date Time Temp Pulse Resp B/P Pulse Ox O2 Delivery O2 Flow Rate FiO2 08/14/17 13:55 98.7 95 20 150/75 98 Intake and Output 08/13/17 08/13/17 08/14/17 14:59 22:59 06:59 Intake Total 450 ml 880 ml 120 ml Output Total 2960 ml 470 ml Balance 450 ml -2080 ml -350 ml Exam Constitutional: alert, oriented, well developed Respiratory: clear to auscultation, normal air movement Cardiovascular: nl pulses Gastrointestinal: non-tender, other (Nondistended abdomen), soft Musculoskeletal: nl extremities to inspection Extremities: normal pulses, other (No edema, clubbing or cyanosis) Neurological: PHYSICIST NUCLEAR II-XII intact, nl mental status, nl speech, nl strength Results Result Diagram: 08/14/17 0505 08/14/17 0505 Results 24 hrs Laboratory Tests Test 08/14/17 05:05 White Blood Count 7.9 Red Blood Count 4.54 # Hemoglobin 11.9 #L Hematocrit 38.0 # Mean Corpuscular Volume 83.7 Mean Corpuscular Hemoglobin 26.2 L Mean Corpuscular Hemoglobin Concent 31.3 L Red Cell Distribution Width 13.1 Platelet Count 515 #H Mean Platelet Volume 10.1 Neutrophils % 76.3 Lymphocytes % 14.6 L Monocytes % 6.5 Eosinophils % 1.7 Basophils % 0.1 Nucleated Red Blood Cells % 0.0 Neutrophils # 6.0 Lymphocytes # 1.2 Monocytes # 0.5 Eosinophils # 0.1 Basophils # 0.0 Nucleated Red Blood Cells # 0.0 Sodium Level 142 Potassium Level 4.8 Chloride Level 101 Carbon Dioxide Level 35 H Anion Gap 11 Blood Urea Nitrogen 10 Creatinine 0.65 Glucose Level 111 Calcium Level 9.5 Medications Medications Current Medications Acetaminophen/ Hydrocodone Bitart ([place] (5/325)) 1 tab Q6H PRN PO PAIN LEVEL 6 -10 Last administered on 08/12/17 12:32; Admin Dose 1 TAB; Start 08/08/17 at 15:30 Acetaminophen/ Hydrocodone Bitart ([place] (10/325)) 1 tab Q6H PRN PO PAIN Last administered on 08/13/17 15:01; Admin Dose 1 TAB; Start 08/08/17 at 15:30 Diphenhydramine HCl (Benadryl) 25 mg Q6H PRN IV ITCHING; Start 08/08/17 at 15: 30 Ondansetron HCl (Zofran Inj) 4 mg Q6H PRN IV NAUSEA AND/OR VOMITING Last administered on 08/14/17 13:45; Admin Dose 4 MG; Start 08/08/17 at 15:30 Famotidine (Pepcid) 20 mg BID PO Last administered on 08/13/17 22:09; Admin Dose 20 MG; Start 08/08/17 at 21:00 Enoxaparin Sodium (Lovenox) 40 mg DAILY@07 SC Last administered on 08/14/17 06 :03; Admin Dose 40 MG; Start 08/09/17 at 07:00 Naloxone HCl (Narcan) 0.2 mg Q2M PRN IV RR 8 BREATHS/MIN OR LESS; Start at 19:30 Acetaminophen (Tylenol Tab) 650 mg Q4H PRN PO PAIN AND OR ELEVATED TEMP Last administered on 08/11/17 15:10; Admin Dose 650 MG; Start 08/11/17 at 15:30 Hydromorphone HCl (Dilaudid) 1 mg Q2H PRN IV pain Last administered on 22:56; Admin Dose 1 MG; Start 08/11/17 at 22:00 Hard Fat/ Phenylephrine (Anusol Supp) 1 supp TID PRN [place] HEMORROID PAIN/ITCHING Last administered on 08/13/17 08:53; Admin Dose 1 SUPP; Start 08/12/17 at 18:00 Hydromorphone HCl (Dilaudid) 1 mg Q6H PRN PO PAIN LEVEL 8-10; Start 08/12/17 at 18:00 Magnesium Hydroxide (Milk Of Mag) 30 ml DAILY PRN PO CONSTIPATION; Start at 11:00 Bisacodyl (Dulcolax) 10 mg DAILY PRN PO CONSTIPATION Last administered on 12:54; Admin Dose 10 MG; Start 08/13/17 at 11:00 Docusate Sodium (Colace) 100 mg BID PO ; Start 08/14/17 at 21:00 Polyethylene Glycol (Miralax) 17 gm DAILY PO Last administered on 08/14/17 13: 45; Admin Dose 17 GM; Start 08/14/17 at 13:30 EZE ASTORGA Aug 14, 2017 15:53
[2017-08-14] MEDS ORDERED: SOD CHLORIDE 0.9% 1,000 ML IV SCH (16:00)
--- NOTE | 2017-08-14 18:55 | PN ---
Date/Time of Note Date/Time of Note DATE: 08/14/17 TIME: 18:54 Assessment/Plan VTE Prophylaxis VTE Prophylaxis Intervention: LMWH, SCD's Lines/Catheters IV Catheter Type (from Nrsg): Saline Lock Urinary Cath still in place: No Assessment/Plan Assessment/Plan Post op ileus vs. obstruction, NGT tonight, NPO, SB follow through tomorrow. Subjective 24 Hr Interval Summary Free Text/Dictation N&V x 3 today, KUB showed ileus vs. obstruction Exam/Review of Systems Vital Signs Vitals Vital Signs Date Time Temp Pulse Resp B/P Pulse Ox O2 Delivery O2 Flow Rate FiO2 08/14/17 13:55 98.7 95 20 150/75 98 Intake and Output 08/13/17 08/13/17 08/14/17 15:00 23:00 07:00 Intake Total 450 ml 880 ml 120 ml Output Total 2960 ml 470 ml Balance 450 ml -2080 ml -350 ml Exam Gastrointestinal: soft Results Result Diagram: 08/14/17 0505 08/14/17 0505 Results 24 hrs Laboratory Tests Test 08/14/17 05:05 White Blood Count 7.9 Red Blood Count 4.54 # Hemoglobin 11.9 #L Hematocrit 38.0 # Mean Corpuscular Volume 83.7 Mean Corpuscular Hemoglobin 26.2 L Mean Corpuscular Hemoglobin Concent 31.3 L Red Cell Distribution Width 13.1 Platelet Count 515 #H Mean Platelet Volume 10.1 Neutrophils % 76.3 Lymphocytes % 14.6 L Monocytes % 6.5 Eosinophils % 1.7 Basophils % 0.1 Nucleated Red Blood Cells % 0.0 Neutrophils # 6.0 Lymphocytes # 1.2 Monocytes # 0.5 Eosinophils # 0.1 Basophils # 0.0 Nucleated Red Blood Cells # 0.0 Sodium Level 142 Potassium Level 4.8 Chloride Level 101 Carbon Dioxide Level 35 H Anion Gap 11 Blood Urea Nitrogen 10 Creatinine 0.65 Glucose Level 111 Calcium Level 9.5 Medications Medications Current Medications Acetaminophen/ Hydrocodone Bitart ([place] (5/325)) 1 tab Q6H PRN PO PAIN LEVEL 6 -10 Last administered on 08/12/17t 12:32; Admin Dose 1 TAB; Start 08/08/17 at 15:30 Acetaminophen/ Hydrocodone Bitart ([place] (10/325)) 1 tab Q6H PRN PO PAIN Last administered on 08/13/17 15:01; Admin Dose 1 TAB; Start 08/08/17 at 15:30 Diphenhydramine HCl (Benadryl) 25 mg Q6H PRN IV ITCHING; Start 08/08/17 at 15: 30 Ondansetron HCl (Zofran Inj) 4 mg Q6H PRN IV NAUSEA AND/OR VOMITING Last administered on 08/14/17 13:45; Admin Dose 4 MG; Start 08/08/17 at 15:30 Famotidine (Pepcid) 20 mg BID PO Last administered on 08/13/17 22:09; Admin Dose 20 MG; Start 08/08/17 at 21:00 Enoxaparin Sodium (Lovenox) 40 mg DAILY@07 SC Last administered on 08/14/17 06 :03; Admin Dose 40 MG; Start 08/09/17 at 07:00 Naloxone HCl (Narcan) 0.2 mg Q2M PRN IV RR 8 BREATHS/MIN OR LESS; Start at 19:30 Acetaminophen (Tylenol Tab) 650 mg Q4H PRN PO PAIN AND OR ELEVATED TEMP Last administered on 08/11/17 15:10; Admin Dose 650 MG; Start 08/11/17 at 15:30 Hydromorphone HCl (Dilaudid) 1 mg Q2H PRN IV pain Last administered on 22:56; Admin Dose 1 MG; Start 08/11/17 at 22:00 Hard Fat/ Phenylephrine (Anusol Supp) 1 supp TID PRN [place] HEMORROID PAIN/ITCHING Last administered on 08/13/17 08:53; Admin Dose 1 SUPP; Start 08/12/17 at 18:00 Hydromorphone HCl (Dilaudid) 1 mg Q6H PRN PO PAIN LEVEL 8-10; Start 08/12/17 at 18:00 Magnesium Hydroxide (Milk Of Mag) 30 ml DAILY PRN PO CONSTIPATION; Start at 11:00 Bisacodyl (Dulcolax) 10 mg DAILY PRN PO CONSTIPATION Last administered on 12:54; Admin Dose 10 MG; Start 08/13/17 at 11:00 Docusate Sodium (Colace) 100 mg BID PO ; Start 08/14/17 at 21:00 Polyethylene Glycol 17 gm 17 gm DAILY PO Last administered on 08/14/17t 13:45; Admin Dose 17 GM; Start 08/14/17 at 13:30 Sodium Chloride (NS) 1,000 ml @ 75 mls/hr [id number] IV ; Start 08/14/17 at 16:00 PRECIOUS SHAY MD Aug 14, 2017 18:55
[2017-08-14 19:33] VITALS: BP 138/77; RESP 18
[2017-08-14] MEDS: DOCUSATE SODIUM 100 MG CAP PO SCH (21:00)
[2017-08-14] MEDS ORDERED: BARIUM SULF 2% 450 ML BTL (BERRY SMOOTHIE) PO ONE (23:30)
[2017-08-14] MEDS: D5W-0.45 NACL + KCL 20 MEQ 1,000 ML IV SCH (23:32)
--- NOTE | 2017-08-15 00:39 | RADRPT ---
PROCEDURE: XR Chest. CLINICAL INDICATION: Check placement of nasogastric tube TECHNIQUE: Single frontal view of the chest was obtained COMPARISON: ABDOMEN 08/14/2017; CHEST 08/06/2017 FINDINGS: Nasogastric tube is in the stomach. The heart and mediastinum are within normal limits. There is hypoinflation lungs and minimal bibasilar atelectasis. There is no pleural effusion or pneumothorax. Dilated small bowel loops are seen in the visualized upper abdomen. IMPRESSION: Nasogastric tube in stomach. Hypoinflation lungs and minimal bibasilar atelectasis. RPTAT: HJES .Jesse Rose MD, MD Date Time Electronically viewed and signed by .Jesse Rose MD, MD on 08/15/2017 00:39 .S/
[2017-08-15 01:52] VITALS: BP 138/74; RESP 18
[2017-08-15] MEDS: ONDANSETRON 4 MG INJ IV PRN ×4 (04:24→21:04)
[2017-08-15] MEDS: D5W-0.45 NACL + KCL 20 MEQ 1,000 ML IV SCH ×5 (05:00→22:45)
--- NOTE | 2017-08-15 06:00 | RADRPT ---
PROCEDURE: CT Abdomen and pelvis without contrast. CLINICAL INDICATION: Abdominal pain. TECHNIQUE: CT scan of the abdomen and pelvis was performed on a multi-detector high-resolution CT scanner. Contiguous axial images were obtained from the lung bases to the ischial tuberosities wit hout intravenous contrast. Coronal and sagittal reformatted images were also obtained. Images were reviewed on the PACS workstation. DICOM images are available. One or more of the following dose reduction techniques were used: - Automated exposure control. - Adjustment of the mA and/or kV according to patient size. - Use of iterative reconstruction technique. Exam CTD/vol = 9.65 mGy. Total exam DLP = 601.32 mGy-cm. COMPARISON: None. FINDINGS: Evaluation of the lung bases demonstrates mild bibasilar atelectasis. There is a nasogastric tube ex tending to the stomach. Abdomen: The liver is normal in size. There is no focal mass or dilatation of the biliary tree. T he gallbladder is not visualized. The spleen, pancreas and bilateral adrenal glands are within norm al limits. Bilateral kidneys are normal in size with no contour deforming mass identified. There i s no radiopaque renal or ureteral calculus identified. There is no hydronephrosis or hydroureter. There is no retroperitoneal adenopathy. The abdominal aorta is of normal caliber. Midline ventral abdominal wall kierra are present with subcutaneous stranding and mild fluid and ai r consistent with recent surgery. There is also mild postoperative pneumoperitoneum. There is oral contrast extending to the mid small bowel. There are mildly distended loops of proximal small bowel compatible with an ileus. The appendix is not visualized. There is no diverticulosis or diverticuli tis. There is mild intra-abdominal stranding and minimal free fluid. There is a right-sided drainage catheter extending to the left lower abdomen. There is a left-sided Port-A-Cath extending to the mi d lower abdomen. Pelvis: The bladder contains small amount of air. The uterus is absent. There is moderate pelvic stranding and trace free fluid. There is no significant pelvic adenopathy. Evaluation of the osseous structures demonstrates no suspicious lytic or blastic lesion. There is pr ior fixation of the right femur with intramedullary jaylene. There are defects of bilateral pars interar ticularis of L5. IMPRESSION: Mildly distended loops of proximal small bowel compatible with an ileus. Follow-up is recommended to exclude developing obstruction. Postsurgical changes with mild pneumoperitoneum. There is intra-abdominal and pelvic stranding and m ild free fluid. Right-sided drainage catheter extending to the left lower abdomen. Mild bibasilar atelectasis. Nasogastric tube in place. Bilateral pars defects of L5. .Sanchez Pagan MD, MD Date Time Electronically viewed and signed by .Sanchez Pagan MD, on 08/15/2017 06:00 .T/
[2017-08-15 06:25] LABS: CALCIUM 9.1 mg/dl (8.4-10.2); CREATININE 0.61 mg/dl (0.44-1.00); POTASSIUM 4.1 mmol/L (3.5-5.1)
[2017-08-15] MEDS: ENOXAPARIN 40 MG/0.4 ML SYG SC SCH (07:08)
[2017-08-15 07:44] VITALS: BP 138/76; RESP 16
[2017-08-15 08:06] LABS: PHOSPHORUS 4.4 mg/dl (2.5-4.9)
[2017-08-15] MEDS: FAMOTIDINE 20 MG TAB PO SCH ×2 (09:00→21:00)
[2017-08-15] MEDS: DOCUSATE SODIUM 100 MG CAP PO SCH ×2 (09:00→21:00)
[2017-08-15] MEDS: POLYETHYLENE GLYCOL 17 GM PACKET PO SCH (09:00)
--- NOTE | 2017-08-15 10:13 | PN ---
Date/Time of Note Date/Time of Note DATE: 08/15/17 TIME: 10:07 Assessment/Plan VTE Prophylaxis VTE Prophylaxis Intervention: LMWH Lines/Catheters [facility] Peripheral IV Urinary Cath still in place: No Assessment/Plan Assessment/Plan 46-year-old female: 1. Postoperative ileus, again seen on CAT scan of the abdomen and pelvis overnight, small bowel follow-through pending this morning. Patient currently n.p.o. with NG tube to suction. Patient denies any pain. She only has a some discomfort from the NG tube. 2. Ovarian cancer with pelvic mass, status post exploratory laparotomy with MANNY/ BSO, omentectomy, appendectomy, lymph node dissection, tumor debulking and IP port placement. POD#7. CT abdomen and pelvis only showing some postoperative changes, no acute fluid collection or masses seen.. WBC within normal, patient otherwise doing better with better controlled pain. Follow-up small bowel follow-through We will keep encouraging ambulation, back on IV fluids. Follow-up further recommendations from PUMP ERECTOR HELPER/ONC. Prophylaxis: Lovenox for DVT prophylaxis, Pepcid for GI prophylaxis Disposition: Encouraging ambulation, small bowel follow-through, NG tube to intermittent suction for now until small bowel follow-through results available. Follow-up further surgical recommendations. Subjective 24 Hr Interval Summary Free Text/Dictation Patient was having more nausea and vomiting yesterday afternoon, she was having pain, NG tube had to be placed in the evening. CAT scan abdomen and pelvis done overnight not showing major obstruction or acute findings besides postoperative findings in the abdomen. Patient does have mild ileus with NG tube in place. Small bowel follow-through pending this morning. Patient feels better with NG tube in place. Exam/Review of Systems Vital Signs Vitals Vital Signs Date Time Temp Pulse Resp B/P Pulse Ox O2 Delivery O2 Flow Rate FiO2 08/15/17 07:44 98.4 94 16 138/76 97 Intake and Output 08/14/17 08/14/17 08/15/17 15:00 23:00 07:00 Intake Total 960 ml 1890 ml Output Total 540 ml 1520 ml 1250 ml Balance -540 ml -560 ml 640 ml Exam Constitutional: alert, frail, oriented, well developed Respiratory: clear to auscultation, normal air movement Cardiovascular: nl pulses, regular rate and rhythm Gastrointestinal: non-tender, other (Nondistended, NG tube in place), soft Musculoskeletal: nl extremities to inspection, nl gait and stance Extremities: normal pulses Neurological: TECHNICAL SERVICES LIBRARIAN II-XII intact, nl mental status, nl speech, nl strength Results Result Diagram: 08/14/17 0505 08/15/17 0526 Results 24 hrs Laboratory Tests Test 08/15/17 05:26 08/15/17 05:33 Sodium Level 139 Potassium Level 4.1 Chloride Level 101 Carbon Dioxide Level 30 Anion Gap 12 Blood Urea Nitrogen 13 Creatinine 0.61 Glucose Level 137 Calcium Level 9.1 Phosphorus Level 4.4 Magnesium Level 2.0 Imaging Free Text/Dictation PROCEDURE: CT Abdomen and pelvis without contrast. CLINICAL INDICATION: Abdominal pain. TECHNIQUE: CT scan of the abdomen and pelvis was performed on a multi- detector high-resolution CT scanner. Contiguous axial images were obtained from the lung bases to the ischial tuberosities without intravenous contrast. Coronal and sagittal reformatted images were also obtained. Images were reviewed on the PACS workstation. DICOM images are available. One or more of the following dose reduction techniques were used: - Automated exposure control. - Adjustment of the mA and/or kV according to patient size. - Use of iterative reconstruction technique. Exam CTD/vol = 9.65 mGy. Total exam DLP = 601.32 mGy-cm. COMPARISON: None. FINDINGS: Evaluation of the lung bases demonstrates mild bibasilar atelectasis. There is a nasogastric tube extending to the stomach. Abdomen: The liver is normal in size. There is no focal mass or dilatation of the biliary tree. The gallbladder is not visualized. The spleen, pancreas and bilateral adrenal glands are within normal limits. Bilateral kidneys are normal in size with no contour deforming mass identified. There is no radiopaque renal or ureteral calculus identified. There is no hydronephrosis or hydroureter. There is no retroperitoneal adenopathy. The abdominal aorta is of normal caliber. Midline ventral abdominal wall kierra are present with subcutaneous stranding and mild fluid and air consistent with recent surgery. There is also mild postoperative pneumoperitoneum. There is oral contrast extending to the mid small bowel. There are mildly distended loops of proximal small bowel compatible with an ileus. The appendix is not visualized. There is no diverticulosis or diverticulitis. There is mild intra-abdominal stranding and minimal free fluid. There is a right-sided drainage catheter extending to the left lower abdomen. There is a left-sided Port-A-Cath extending to the mid lower abdomen. Pelvis: The bladder contains small amount of air. The uterus is absent. There is moderate pelvic stranding and trace free fluid. There is no significant pelvic adenopathy. Evaluation of the osseous structures demonstrates no suspicious lytic or blastic lesion. There is prior fixation of the right femur with intramedullary jaylene. There are defects of bilateral pars interarticularis of L5. IMPRESSION: Mildly distended loops of proximal small bowel compatible with an ileus. Follow- up is recommended to exclude developing obstruction. Postsurgical changes with mild pneumoperitoneum. There is intra-abdominal and pelvic stranding and mild free fluid. Right-sided drainage catheter extending to the left lower abdomen. Mild bibasilar atelectasis. Nasogastric tube in place. Bilateral pars defects of L5. .Sanchez Pagan MD, MD Date Time Electronically viewed and signed by .Sanchez Pagan MD, MD on 08/15/2017 06:00 Medications Medications Current Medications Acetaminophen/ Hydrocodone Bitart ([place] (5/325)) 1 tab Q6H PRN PO PAIN LEVEL 6 -10 Last administered on 08/12/17 12:32; Admin Dose 1 TAB; Start 08/08/17 at 15:30 Acetaminophen/ Hydrocodone Bitart ([place] (10/325)) 1 tab Q6H PRN PO PAIN Last administered on 08/13/17 15:01; Admin Dose 1 TAB; Start 08/08/17 at 15:30 Diphenhydramine HCl (Benadryl) 25 mg Q6H PRN IV ITCHING; Start 08/08/17 at 15: 30 Ondansetron HCl (Zofran Inj) 4 mg Q6H PRN IV NAUSEA AND/OR VOMITING Last administered on 08/15/17 04:24; Admin Dose 4 MG; Start 08/08/17 at 15:30 Famotidine (Pepcid) 20 mg BID PO Last administered on 08/13/17 22:09; Admin Dose 20 MG; Start 08/08/17 at 21:00 Enoxaparin Sodium (Lovenox) 40 mg DAILY@07 SC Last administered on 08/15/17 07 :08; Admin Dose 40 MG; Start 08/09/17 at 07:00 Naloxone HCl (Narcan) 0.2 mg Q2M PRN IV RR 8 BREATHS/MIN OR LESS; Start at 19:30 Acetaminophen (Tylenol Tab) 650 mg Q4H PRN PO PAIN AND OR ELEVATED TEMP Last administered on 08/11/17 15:10; Admin Dose 650 MG; Start 08/11/17 at 15:30 Hydromorphone HCl (Dilaudid) 1 mg Q2H PRN IV pain Last administered on 22:56; Admin Dose 1 MG; Start 08/11/17 at 22:00 Hard Fat/ Phenylephrine (Anusol Supp) 1 supp TID PRN [place] HEMORROID PAIN/ITCHING Last administered on 08/13/17 08:53; Admin Dose 1 SUPP; Start 08/12/17 at 18:00 Hydromorphone HCl (Dilaudid) 1 mg Q6H PRN PO PAIN LEVEL 8-10; Start 08/12/17 at 18:00 Magnesium Hydroxide (Milk Of Mag) 30 ml DAILY PRN PO CONSTIPATION; Start at 11:00 Bisacodyl (Dulcolax) 10 mg DAILY PRN PO CONSTIPATION Last administered on 12:54; Admin Dose 10 MG; Start 08/13/17 at 11:00 Docusate Sodium (Colace) 100 mg BID PO ; Start 08/14/17 at 21:00 Polyethylene Glycol 17 gm 17 gm DAILY PO Last administered on 08/14/17 13:45; Admin Dose 17 GM; Start 08/14/17 at 13:30 Potassium Chloride/Dextrose/ Sod Cl (D5-1/2ns + KCl 20 Meq) 1,000 ml @ 100 mls/ hr Q10H IV Last administered on 08/14/17 23:32; Admin Dose 100 MLS/HR; Start 08/14/17 at 19:00 EZE ASTORGA Aug 15, 2017 10:13
[2017-08-15] MEDS ORDERED: IOHEXOL 300MG/ML 150 ML BTL ONE ×2 (10:51→12:46)
[2017-08-15 14:04] VITALS: BP 136/71; RESP 16
--- NOTE | 2017-08-15 16:03 | RADRPT ---
PROCEDURE: Small bowel follow-through. CLINICAL INDICATION: Abdomen pain. TECHNIQUE: Water-soluble contrast was administered via the nasogastric tube and overhead radiograp hs of the abdomen were obtained. 6 images were obtained. COMPARISON: Abdomen radiograph dated 08/14/2017. FINDINGS: On the preliminary radiograph, the nasogastric tube tip is in the stomach. The implanted port in the left flank with catheter extending to the pelvis and surgical drains in the pelvis are also unchang ed. Vertical skin kierra are noted. Right hip surgery with hardware is noted. Dilated small bowel is present in the upper abdomen. There is delayed emptying of the stomach with most of the contrast remaining in the stomach at 2 gabi rs 30 minutes. The patient vomited and almost no contrast remains. Therefore, the study was terminat ed. IMPRESSION: 1. Delayed gastric emptying and the patient vomited. Almost no contrast is visualized in the small bowel. Correlation with CT scan of abdomen and pelvis advised. RPTAT: QQ .Jomar Daily MD, MD Date Time Electronically viewed and signed by .Jomar Daily MD, on 08/15/2017 16:02 .R/
[2017-08-15] MEDS: HYDROmorphONE 1 MG/ML SYG IV PRN ×2 (17:38→21:05)
[2017-08-15 20:00] VITALS: BP 152/80; RESP 20
[2017-08-16] MEDS: D5W-0.45 NACL + KCL 20 MEQ 1,000 ML IV SCH ×3 (00:15→21:03)
[2017-08-16] MEDS: ONDANSETRON 4 MG INJ IV PRN ×2 (01:45→16:14)
[2017-08-16 02:00] VITALS: BP 140/80; RESP 20
[2017-08-16] MEDS: HYDROmorphONE 1 MG/ML SYG IV PRN ×2 (03:10→08:40)
[2017-08-16 06:17] LABS: BASOPHILS % 0.2 % (0.0-2.0); EOSINOPHILS # 0.2 10^3/ul (0.0-0.5); EOSINOPHILS % 1.2 % (0.0-7.0); HEMATOCRIT 35.8 % (37.0-47.0); HEMOGLOBIN 11.6 g/dl (12.0-16.0); LYMPHOCYTES # 2.1 10^3/ul (0.8-2.9); LYMPHOCYTES % 16.7 % (15.0-51.0); MEAN CORPUSCULAR HEMOGLOBIN 26.9 pg (29.0-33.0); MEAN CORPUSCULAR HGB CONC 32.4 g/dl (32.0-37.0); MEAN CORPUSCULAR VOLUME 82.9 fl (82.0-101.0); MEAN PLATELET VOLUME 10.1 fl (7.4-10.4); MONOCYTE # 1.1 10^3/ul (0.3-0.9); MONOCYTES % 8.6 % (0.0-11.0); NEUTROPHIL # 8.9 10^3/ul (1.6-7.5); NEUTROPHILS % 72.2 % (39.0-77.0); PLATELET COUNT 563 10^3/UL (140-415); RED BLOOD COUNT 4.32 10^6/ul (4.20-5.40); RED CELL DISTRIBUTION WIDTH 13.9 % (11.5-14.5); WHITE BLOOD COUNT 12.3 10^3/ul (4.8-10.8)
[2017-08-16] MEDS: ENOXAPARIN 40 MG/0.4 ML SYG SC SCH (06:17)
[2017-08-16 06:38] LABS: MAGNESIUM 1.9 mg/dl (1.7-2.5); PHOSPHORUS 4.5 mg/dl (2.5-4.9)
[2017-08-16 06:39] LABS: CALCIUM 9.2 mg/dl (8.4-10.2); CREATININE 0.69 mg/dl (0.44-1.00); POTASSIUM 4.6 mmol/L (3.5-5.1)
[2017-08-16 07:23] VITALS: BP 145/69; RESP 18
[2017-08-16] MEDS: DOCUSATE SODIUM 100 MG CAP PO SCH ×2 (08:40→21:02)
[2017-08-16] MEDS: POLYETHYLENE GLYCOL 17 GM PACKET PO SCH (08:40)
[2017-08-16] MEDS: FAMOTIDINE 20 MG TAB PO SCH ×2 (08:40→21:02)
[2017-08-16] MEDS ORDERED: NA PHOSPHATE/BIPHOS 133 ML ENEMA PR ONE (11:00)
--- NOTE | 2017-08-16 11:03 | PN ---
Date/Time of Note Date/Time of Note DATE: 08/16/17 TIME: 11:02 Assessment/Plan VTE Prophylaxis VTE Prophylaxis Intervention: LMWH, SCD's Lines/Catheters IV Catheter Type (from Nrsg): Peripheral IV Urinary Cath still in place: No Assessment/Plan Assessment/Plan (1) Reglan ATC IV for 2 days, (2) Fleet enema today, (3) Repeat SBF tomorrow, (4 ) Ambulate. Subjective 24 Hr Interval Summary Free Text/Dictation Did not tolerated SBF, NG drained alot, + flatus now. Exam/Review of Systems Vital Signs Vitals Vital Signs Date Time Temp Pulse Resp B/P Pulse Ox O2 Delivery O2 Flow Rate FiO2 08/16/17 07:23 98.7 89 18 145/69 96 Intake and Output 08/15/17 08/15/17 08/16/17 14:59 22:59 06:59 Intake Total 400 ml 1000 ml 650 ml Output Total 1540 ml 275 ml Balance 400 ml -540 ml 375 ml Exam Gastrointestinal: soft Results Result Diagram: 08/16/17 0552 08/16/17 0552 Results 24 hrs Laboratory Tests Test 08/16/17 05:52 White Blood Count 12.3 #H Red Blood Count 4.32 Hemoglobin 11.6 L Hematocrit 35.8 L Mean Corpuscular Volume 82.9 Mean Corpuscular Hemoglobin 26.9 L Mean Corpuscular Hemoglobin Concent 32.4 Red Cell Distribution Width 13.9 Platelet Count 563 H Mean Platelet Volume 10.1 Neutrophils % 72.2 Lymphocytes % 16.7 Monocytes % 8.6 Eosinophils % 1.2 Basophils % 0.2 Nucleated Red Blood Cells % 0.0 Neutrophils # 8.9 H Lymphocytes # 2.1 Monocytes # 1.1 H Eosinophils # 0.2 Basophils # 0.0 Nucleated Red Blood Cells # 0.0 Sodium Level 140 Potassium Level 4.6 Chloride Level 100 Carbon Dioxide Level 32 H Anion Gap 13 Blood Urea Nitrogen 17 Creatinine 0.69 Glucose Level 128 Calcium Level 9.2 Phosphorus Level 4.5 Magnesium Level 1.9 Medications Medications Current Medications Acetaminophen/ Hydrocodone Bitart ([place] (5/325)) 1 tab Q6H PRN PO PAIN LEVEL 6 -10 Last administered on 08/12/17t 12:32; Admin Dose 1 TAB; Start 08/08/17 at 15:30 Acetaminophen/ Hydrocodone Bitart ([place] (10/325)) 1 tab Q6H PRN PO PAIN Last administered on 08/13/17 15:01; Admin Dose 1 TAB; Start 08/08/17 at 15:30 Diphenhydramine HCl (Benadryl) 25 mg Q6H PRN IV ITCHING; Start 08/08/17 at 15: 30 Famotidine (Pepcid) 20 mg BID PO Last administered on 08/16/17 08:40; Admin Dose 20 MG; Start 08/08/17 at 21:00 Enoxaparin Sodium (Lovenox) 40 mg DAILY@07 SC Last administered on 08/16/17 06 :17; Admin Dose 40 MG; Start 08/09/17 at 07:00 Naloxone HCl (Narcan) 0.2 mg Q2M PRN IV RR 8 BREATHS/MIN OR LESS; Start at 19:30 Acetaminophen (Tylenol Tab) 650 mg Q4H PRN PO PAIN AND OR ELEVATED TEMP Last administered on 08/11/17 15:10; Admin Dose 650 MG; Start 08/11/17 at 15:30 Hydromorphone HCl (Dilaudid) 1 mg Q2H PRN IV pain Last administered on 08:40; Admin Dose 1 MG; Start 08/11/17 at 22:00 Hard Fat/ Phenylephrine (Anusol Supp) 1 supp TID PRN [place] HEMORROID PAIN/ITCHING Last administered on 08/13/17 08:53; Admin Dose 1 SUPP; Start 08/12/17 at 18:00 Hydromorphone HCl (Dilaudid) 1 mg Q6H PRN PO PAIN LEVEL 8-10; Start 08/12/17 at 18:00 Magnesium Hydroxide (Milk Of Mag) 30 ml DAILY PRN PO CONSTIPATION; Start at 11:00 Bisacodyl (Dulcolax) 10 mg DAILY PRN PO CONSTIPATION Last administered on 12:54; Admin Dose 10 MG; Start 08/13/17 at 11:00 Docusate Sodium (Colace) 100 mg BID PO Last administered on 08/16/17 08:40; Admin Dose 100 MG; Start 08/14/17 at 21:00 Polyethylene Glycol 17 gm 17 gm DAILY PO Last administered on 08/16/17 08:40; Admin Dose 17 GM; Start 08/14/17 at 13:30 Potassium Chloride/Dextrose/ Sod Cl (D5-1/2ns + KCl 20 Meq) 1,000 ml @ 100 mls/ hr Q10H IV Last administered on 08/15/17 22:45; Admin Dose 100 MLS/HR; Start 08/14/17 at 19:00 Ondansetron HCl (Zofran Inj) 4 mg Q4 PRN IV NAUSEA AND/OR VOMITING Last administered on 08/16/17 01:45; Admin Dose 4 MG; Start 08/15/17 at 17:00 PRECIOUS SHAY MD Aug 16, 2017 11:03
--- NOTE | 2017-08-16 11:39 | PN ---
Date/Time of Note Date/Time of Note DATE: 08/16/17 TIME: 11:36 Assessment/Plan VTE Prophylaxis VTE Prophylaxis Intervention: LMWH Lines/Catheters IV [facility] Type (from [facility]): Peripheral IV Urinary Cath still in place: No Assessment/Plan Assessment/Plan 46-year-old female: 1. Postoperative ileus, again seen on CAT scan of the abdomen and pelvis overnight, small bowel follow-through incomplete/nonconclusive yesterday. Given CT findings however patient likely has postop ileus and not an obstruction. Therefore Reglan to be started this morning per Dr. Stephenson's orders. Monitor, repeat KUB versus small bowel follow-through in a.m. Patient reports that her nausea and vomiting seems to be prompted by the NG tube that is stimulating her gag reflex, she likely has a very sensitive gag reflex. Patient still n.p.o. with NG tube to suction. She denies abdominal pain and mainly complains of discomfort from the NG tube. 2. Ovarian cancer with pelvic mass, status post exploratory laparotomy with MANNY/ BSO, omentectomy, appendectomy, lymph node dissection, tumor debulking and IP port placement. POD#8. We will keep encouraging ambulation, on IV fluids. Appreciate recommendations from [employer]/ONC. Prophylaxis: Lovenox for DVT prophylaxis, Pepcid for GI prophylaxis Disposition: Encouraging ambulation, Reglan, NG tube to intermittent suction. KUB versus small bowel follow-through in a.m. depending how much of contrast patient able to tolerate his NG tube in place. Subjective 24 Hr Interval Summary Free Text/Dictation Patient is doing slightly better, she was unable to tolerate the contrast yesterday for the study mainly because of very sensitive gag reflex, according to the family she was gagging with the NG tube which prompted her to throw up the contrast less so than abdominal distention. Small bowel follow-through was different definitely on conclusive but the CAT scan of the abdomen and pelvis few hours prior did show ileus and no obstruction. Patient is ambulating, will try Reglan. Repeat KUB versus small bowel follow- through in a.m. depending how much contrast the patient able to tolerate. The NG tube seems to be prompting her gag reflex and causing dry heaving. Exam/Review of Systems Vital Signs Vitals Vital Signs Date Time Temp Pulse Resp B/P Pulse Ox O2 Delivery O2 Flow Rate FiO2 08/16/17 07:23 98.7 89 18 145/69 96 Intake and Output 08/15/17 08/15/17 08/16/17 15:00 23:00 07:00 Intake Total 400 ml 1000 ml 650 ml Output Total 1540 ml 275 ml Balance 400 ml -540 ml 375 ml Exam Constitutional: alert, oriented, well developed Respiratory: clear to auscultation, normal air movement Cardiovascular: nl pulses, regular rate and rhythm Gastrointestinal: non-tender, soft Musculoskeletal: nl extremities to inspection, nl gait and stance Extremities: normal pulses, other (No edema, clubbing or cyanosis) Neurological: INFORMATICS DEVELOPER II-XII intact, nl mental status, nl speech, nl strength Results Result Diagram: 08/16/1752 08/16/1752 Results 24 hrs Laboratory Tests Test 08/16/17 05:52 White Blood Count 12.3 #H Red Blood Count 4.32 Hemoglobin 11.6 L Hematocrit 35.8 L Mean Corpuscular Volume 82.9 Mean Corpuscular Hemoglobin 26.9 L Mean Corpuscular Hemoglobin Concent 32.4 Red Cell Distribution Width 13.9 Platelet Count 563 H Mean Platelet Volume 10.1 Neutrophils % 72.2 Lymphocytes % 16.7 Monocytes % 8.6 Eosinophils % 1.2 Basophils % 0.2 Nucleated Red Blood Cells % 0.0 Neutrophils # 8.9 H Lymphocytes # 2.1 Monocytes # 1.1 H Eosinophils # 0.2 Basophils # 0.0 Nucleated Red Blood Cells # 0.0 Sodium Level 140 Potassium Level 4.6 Chloride Level 100 Carbon Dioxide Level 32 H Anion Gap 13 Blood Urea Nitrogen 17 Creatinine 0.69 Glucose Level 128 Calcium Level 9.2 Phosphorus Level 4.5 Magnesium Level 1.9 Imaging Free Text/Dictation ROCEDURE: Small bowel follow-through. CLINICAL INDICATION: Abdomen pain. TECHNIQUE: Water-soluble contrast was administered via the nasogastric tube and overhead radiographs of the abdomen were obtained. 6 images were obtained. COMPARISON: Abdomen radiograph dated 08/14/2017. FINDINGS: On the preliminary radiograph, the nasogastric tube tip is in the stomach. The implanted port in the left flank with catheter extending to the pelvis and surgical drains in the pelvis are also unchanged. Vertical skin kierra are noted. Right hip surgery with hardware is noted. Dilated small bowel is present in the upper abdomen. There is delayed emptying of the stomach with most of the contrast remaining in the stomach at 2 hours 30 minutes. The patient vomited and almost no contrast remains. Therefore, the study was terminated. IMPRESSION: 1. Delayed gastric emptying and the patient vomited. Almost no contrast is visualized in the small bowel. Correlation with CT scan of abdomen and pelvis advised. RPTAT: QQ .Jomar Daily MD, MD Date Time Electronically viewed and signed by .Jomar Daily MD, MD on 08/15/2017 16:02 Medications Medications Current Medications Acetaminophen/ Hydrocodone Bitart ([place] (5/325)) 1 tab Q6H PRN PO PAIN LEVEL 6 -10 Last administered on 08/12/17 12:32; Admin Dose 1 TAB; Start 08/08/17 at 15:30 Acetaminophen/ Hydrocodone Bitart ([place] (10/325)) 1 tab Q6H PRN PO PAIN Last administered on 08/13/17 15:01; Admin Dose 1 TAB; Start 08/08/17 at 15:30 Diphenhydramine HCl (Benadryl) 25 mg Q6H PRN IV ITCHING; Start 08/08/17 at 15: 30 Famotidine (Pepcid) 20 mg BID PO Last administered on 08/16/17 08:40; Admin Dose 20 MG; Start 08/08/17 at 21:00 Enoxaparin Sodium (Lovenox) 40 mg DAILY@07 SC Last administered on 08/16/17 06 :17; Admin Dose 40 MG; Start 08/09/17 at 07:00 Naloxone HCl (Narcan) 0.2 mg Q2M PRN IV RR 8 BREATHS/MIN OR LESS; Start at 19:30 Acetaminophen (Tylenol Tab) 650 mg Q4H PRN PO PAIN AND OR ELEVATED TEMP Last administered on 08/11/17 15:10; Admin Dose 650 MG; Start 08/11/17 at 15:30 Hydromorphone HCl (Dilaudid) 1 mg Q2H PRN IV pain Last administered on 08:40; Admin Dose 1 MG; Start 08/11/17 at 22:00 Hard Fat/ Phenylephrine (Anusol Supp) 1 supp TID PRN [place] HEMORROID PAIN/ITCHING Last administered on 08/13/17 08:53; Admin Dose 1 SUPP; Start 08/12/17 at 18:00 Hydromorphone HCl (Dilaudid) 1 mg Q6H PRN PO PAIN LEVEL 8-10; Start 08/12/17 at 18:00 Magnesium Hydroxide (Milk Of Mag) 30 ml DAILY PRN PO CONSTIPATION; Start at 11:00 Bisacodyl (Dulcolax) 10 mg DAILY PRN PO CONSTIPATION Last administered on 12:54; Admin Dose 10 MG; Start 08/13/17 at 11:00 Docusate Sodium (Colace) 100 mg BID PO Last administered on 08/16/17 08:40; Admin Dose 100 MG; Start 08/14/17 at 21:00 Polyethylene Glycol 17 gm 17 gm DAILY PO Last administered on 08/16/17 08:40; Admin Dose 17 GM; Start 08/14/17 at 13:30 Potassium Chloride/Dextrose/ Sod Cl (D5-1/2ns + KCl 20 Meq) 1,000 ml @ 100 mls/ hr Q10H IV Last administered on 08/15/17 22:45; Admin Dose 100 MLS/HR; Start 08/14/17 at 19:00 Ondansetron HCl (Zofran Inj) 4 mg Q4 PRN IV NAUSEA AND/OR VOMITING Last administered on 08/16/17 01:45; Admin Dose 4 MG; Start 08/15/17 at 17:00 Metoclopramide HCl (Reglan) 10 mg Q6 IV ; Start 08/16/17 at 12:00; Stop at 08:00 EZE ASTORGA Aug 16, 2017 11:39
[2017-08-16] MEDS: METOCLOPRAMIDE 10 MG INJ IV SCH ×2 (12:17→17:43)
[2017-08-16 13:29] VITALS: BP 142/76; RESP 18
[2017-08-16 19:32] VITALS: BP 141/74; RESP 20
[2017-08-17] MEDS: METOCLOPRAMIDE 10 MG INJ IV SCH ×5 (00:06→17:26)
[2017-08-17 02:32] VITALS: BP 148/74; RESP 20
[2017-08-17 06:15] LABS: BASOPHILS % 0.2 % (0.0-2.0); EOSINOPHILS # 0.2 10^3/ul (0.0-0.5); HEMATOCRIT 34.1 % (37.0-47.0); LYMPHOCYTES # 2.1 10^3/ul (0.8-2.9); LYMPHOCYTES % 19.6 % (15.0-51.0); MEAN CORPUSCULAR HEMOGLOBIN 26.6 pg (29.0-33.0); MEAN CORPUSCULAR HGB CONC 32.3 g/dl (32.0-37.0); MEAN CORPUSCULAR VOLUME 82.6 fl (82.0-101.0); MEAN PLATELET VOLUME 10.2 fl (7.4-10.4); MONOCYTES % 9.1 % (0.0-11.0); NEUTROPHIL # 7.2 10^3/ul (1.6-7.5); NEUTROPHILS % 68.2 % (39.0-77.0); PLATELET COUNT 531 10^3/UL (140-415); RED BLOOD COUNT 4.13 10^6/ul (4.20-5.40); RED CELL DISTRIBUTION WIDTH 13.9 % (11.5-14.5); WHITE BLOOD COUNT 10.6 10^3/ul (4.8-10.8)
[2017-08-17] MEDS: D5W-0.45 NACL + KCL 20 MEQ 1,000 ML IV SCH ×3 (06:34→20:47)
[2017-08-17] MEDS: ENOXAPARIN 40 MG/0.4 ML SYG SC SCH (06:41)
[2017-08-17 07:15] LABS: CALCIUM 8.6 mg/dl (8.4-10.2); CREATININE 0.62 mg/dl (0.44-1.00); POTASSIUM 3.7 mmol/L (3.5-5.1)
[2017-08-17 07:25] LABS: MAGNESIUM 1.9 mg/dl (1.7-2.5); PHOSPHORUS 4.5 mg/dl (2.5-4.9)
[2017-08-17 07:26] VITALS: BP 134/88; RESP 19
[2017-08-17] MEDS: FAMOTIDINE 20 MG TAB PO SCH ×2 (08:57→20:44)
[2017-08-17] MEDS: POLYETHYLENE GLYCOL 17 GM PACKET PO SCH (08:57)
[2017-08-17] MEDS: DOCUSATE SODIUM 100 MG CAP PO SCH ×2 (08:57→20:44)
--- NOTE | 2017-08-17 10:41 | PN ---
Date/Time of Note Date/Time of Note DATE: 08/17/17 TIME: 10:37 Assessment/Plan VTE Prophylaxis VTE Prophylaxis Intervention: LMWH Lines/Catheters IV [facility] Type (from [facility] Peripheral IV Urinary Cath still in place: No Assessment/Plan Assessment/Plan 46-year-old female: 1. Postoperative ileus, again seen on CAT scan of the abdomen and pelvis overnight, small bowel follow-through incomplete/nonconclusive yesterday. Patient currently on Reglan, has had significant flatus this morning along with a bowel movement and feels better with no abdominal pain. No nausea or vomiting. Repeat small bowel follow-through this morning. 2. Ovarian cancer with pelvic mass, status post exploratory laparotomy with MANNY/ BSO, omentectomy, appendectomy, lymph node dissection, tumor debulking and IP port placement. POD#9. Currently on IV fluid, once p.o. started, will plan on discontinuing IV fluids. Appreciate recommendations from [employer]ESSIONAL/ONC. Prophylaxis: Lovenox for DVT prophylaxis, Pepcid for GI prophylaxis Disposition: Encouraging ambulation, Reglan, NG tube to intermittent suction. Small bowel follow-through this morning and likely to discontinue NG tube later today and start the patient on at least clear liquid diet. Subjective 24 Hr Interval Summary Free Text/Dictation Patient feels much better today, she had flatus this morning and also bowel movement, she feels much better, no abdominal pain, no nausea. NG tube still in place. Small bowel follow-through pending this morning. Post study if within normal will plan on removing the NG tube and start on a diet if okay with general surgery, patient still on IV Reglan for another 24 hours. Patient very ambulatory. Exam/Review of Systems Vital Signs Vitals Vital Signs Date Time Temp Pulse Resp B/P Pulse Ox O2 Delivery O2 Flow Rate FiO2 08/17/17 07:26 97.3 104 19 134/88 96 Intake and Output 08/16/17 08/16/17 08/17/17 14:59 22:59 06:59 Intake Total 500 ml 1000 ml 800 ml Output Total 100 ml 1095 ml 395 ml Balance 400 ml -95 ml 405 ml Exam Constitutional: alert, oriented, well developed Respiratory: clear to auscultation, normal air movement Cardiovascular: nl pulses, regular rate and rhythm Gastrointestinal: non-tender, other (NG tube in place), soft Musculoskeletal: nl extremities to inspection, nl gait and stance Extremities: normal pulses Neurological: TAR ROOFER II-XII intact, nl mental status, nl speech, nl strength Results Result Diagram: 08/17/1735 08/17/1735 Results 24 hrs Laboratory Tests Test 08/17/17 05:35 White Blood Count 10.6 Red Blood Count 4.13 L Hemoglobin 11.0 L Hematocrit 34.1 L Mean Corpuscular Volume 82.6 Mean Corpuscular Hemoglobin 26.6 L Mean Corpuscular Hemoglobin Concent 32.3 Red Cell Distribution Width 13.9 Platelet Count 531 H Mean Platelet Volume 10.2 Neutrophils % 68.2 Lymphocytes % 19.6 Monocytes % 9.1 Eosinophils % 2.0 Basophils % 0.2 Nucleated Red Blood Cells % 0.0 Neutrophils # 7.2 Lymphocytes # 2.1 Monocytes # 1.0 H Eosinophils # 0.2 Basophils # 0.0 Nucleated Red Blood Cells # 0.0 Sodium Level 139 Potassium Level 3.7 Chloride Level 102 Carbon Dioxide Level 28 Anion Gap 13 Blood Urea Nitrogen 16 Creatinine 0.62 Glucose Level 122 Calcium Level 8.6 Phosphorus Level 4.5 Magnesium Level 1.9 Medications Medications Current Medications Acetaminophen/ Hydrocodone Bitart ([place] (5/325)) 1 tab Q6H PRN PO PAIN LEVEL 6 -10 Last administered on 08/12/17 12:32; Admin Dose 1 TAB; Start 08/08/17 at 15:30 Acetaminophen/ Hydrocodone Bitart ([place] (10/325)) 1 tab Q6H PRN PO PAIN Last administered on 08/13/17 15:01; Admin Dose 1 TAB; Start 08/08/17 at 15:30 Diphenhydramine HCl (Benadryl) 25 mg Q6H PRN IV ITCHING; Start 08/08/17 at 15: 30 Famotidine (Pepcid) 20 mg BID PO Last administered on 08/17/17 08:57; Admin Dose 20 MG; Start 08/08/17 at 21:00 Enoxaparin Sodium (Lovenox) 40 mg DAILY@07 SC Last administered on 08/17/17 06 :41; Admin Dose 40 MG; Start 08/09/17 at 07:00 Naloxone HCl (Narcan) 0.2 mg Q2M PRN IV RR 8 BREATHS/MIN OR LESS; Start at 19:30 Acetaminophen (Tylenol Tab) 650 mg Q4H PRN PO PAIN AND OR ELEVATED TEMP Last administered on 08/11/17 15:10; Admin Dose 650 MG; Start 08/11/17 at 15:30 Hydromorphone HCl (Dilaudid) 1 mg Q2H PRN IV pain Last administered on 08:40; Admin Dose 1 MG; Start 08/11/17 at 22:00 Hard Fat/ Phenylephrine (Anusol Supp) 1 supp TID PRN [place] HEMORROID PAIN/ITCHING Last administered on 08/13/17 08:53; Admin Dose 1 SUPP; Start 08/12/17 at 18:00 Hydromorphone HCl (Dilaudid) 1 mg Q6H PRN PO PAIN LEVEL 8-10; Start 08/12/17 at 18:00 Magnesium Hydroxide (Milk Of Mag) 30 ml DAILY PRN PO CONSTIPATION; Start at 11:00 Bisacodyl (Dulcolax) 10 mg DAILY PRN PO CONSTIPATION Last administered on 12:54; Admin Dose 10 MG; Start 08/13/17 at 11:00 Docusate Sodium (Colace) 100 mg BID PO Last administered on 08/17/17 08:57; Admin Dose 100 MG; Start 08/14/17 at 21:00 Polyethylene Glycol 17 gm 17 gm DAILY PO Last administered on 08/17/17 08:57; Admin Dose 17 GM; Start 08/14/17 at 13:30 Potassium Chloride/Dextrose/ Sod Cl (D5-1/2ns + KCl 20 Meq) 1,000 ml @ 100 mls/ hr Q10H IV Last administered on 08/17/17 06:34; Admin Dose 100 MLS/HR; Start 08/14/17 at 19:00 Ondansetron HCl (Zofran Inj) 4 mg Q4 PRN IV NAUSEA AND/OR VOMITING Last administered on 08/16/17 16:14; Admin Dose 4 MG; Start 08/15/17 at 17:00 Metoclopramide HCl (Reglan) 10 mg Q6 IV Last administered on 08/17/17 06:34; Admin Dose 10 MG; Start 08/16/17 at 12:00; Stop 08/18/17 at 08:00 EZE ASTORGA Aug 17, 2017 10:41
[2017-08-17] MEDS ORDERED: DIATR MEGLU/DIATRIZOATE SODIUM 120 ML BTL ONE (11:17)
[2017-08-17] MEDS ORDERED: VITAMIN A & D 5 GM OINT PACKET TOP ONE (13:55)
[2017-08-17 14:40] VITALS: BP 141/72; RESP 18
--- NOTE | 2017-08-17 15:52 | RADRPT ---
PROCEDURE: Small bowel follow-through. CLINICAL INDICATION: Abdomen pain. TECHNIQUE: Water-soluble contrast was administered Via the nasogastric tube and 6 images of the ab domen and pelvis were obtained. COMPARISON: Abdomen radiograph dated 08/15/2017. FINDINGS: As seen previously, there has been recent surgery with midline vertical skin kierra and surgical dr gopal. The nasogastric tube tip is in the stomach. The implanted port is on the left side of the abdo men with the tip in the pelvis. There is mildly dilated small bowel in the left upper quadrant. There is no evidence of complete obs truction. Contrast reaches the colon at 60 minutes. The 2-hour delayed image demonstrates contrast throughout the colon and rectosigmoid. The delayed im age also demonstrates persistent contrast in the left upper quadrant mildly dilated small bowel. IMPRESSION: 1. Mildly dilated small bowel in the left upper quadrant which may indicate partial obstruction. No obstructing lesion is seen. 2. Postoperative changes. 3. Transit time is normal with contrast in the colon at 1 hour. RPTAT: QQ .Jomar Daily MD, MD Date Time Electronically viewed and signed by .Jomar Daily MD, on 08/17/2017 15:51 .R/
[2017-08-17 20:00] VITALS: BP 133/69; RESP 20
[2017-08-17 20:28] VITALS: BP 109/68; RESP 20
[2017-08-18] MEDS: METOCLOPRAMIDE 10 MG INJ IV SCH ×2 (00:51→06:18)
[2017-08-18 02:34] VITALS: BP 130/64; RESP 20
[2017-08-18] MEDS: D5W-0.45 NACL + KCL 20 MEQ 1,000 ML IV SCH ×2 (03:00→06:18)
[2017-08-18 06:22] LABS: BASOPHILS % 0.3 % (0.0-2.0); EOSINOPHILS # 0.4 10^3/ul (0.0-0.5); EOSINOPHILS % 3.4 % (0.0-7.0); HEMATOCRIT 33.5 % (37.0-47.0); HEMOGLOBIN 10.8 g/dl (12.0-16.0); LYMPHOCYTES # 1.9 10^3/ul (0.8-2.9); MEAN CORPUSCULAR HEMOGLOBIN 26.9 pg (29.0-33.0); MEAN CORPUSCULAR HGB CONC 32.2 g/dl (32.0-37.0); MEAN CORPUSCULAR VOLUME 83.3 fl (82.0-101.0); MEAN PLATELET VOLUME 10.5 fl (7.4-10.4); MONOCYTE # 0.9 10^3/ul (0.3-0.9); MONOCYTES % 8.6 % (0.0-11.0); NEUTROPHIL # 7.3 10^3/ul (1.6-7.5); NEUTROPHILS % 68.7 % (39.0-77.0); PLATELET COUNT 479 10^3/UL (140-415); RED BLOOD COUNT 4.02 10^6/ul (4.20-5.40); WHITE BLOOD COUNT 10.6 10^3/ul (4.8-10.8)
[2017-08-18] MEDS: ENOXAPARIN 40 MG/0.4 ML SYG SC SCH (06:30)
[2017-08-18 06:50] LABS: CALCIUM 8.8 mg/dl (8.4-10.2); CREATININE 0.56 mg/dl (0.44-1.00); POTASSIUM 3.7 mmol/L (3.5-5.1)
[2017-08-18 07:28] VITALS: BP 126/63; RESP 14
[2017-08-18] MEDS ORDERED: DEXTROSE 5%-0.45% NACL 1,000 ML IV SCH (09:00)
[2017-08-18] MEDS: DOCUSATE SODIUM 100 MG CAP PO SCH ×2 (09:35→21:10)
[2017-08-18] MEDS: POLYETHYLENE GLYCOL 17 GM PACKET PO SCH (09:35)
[2017-08-18] MEDS: FAMOTIDINE 20 MG INJ IV SCH (09:35)
--- NOTE | 2017-08-18 10:00 | PN ---
Date/Time of Note Date/Time of Note DATE: 08/18/17 TIME: 09:59 Assessment/Plan VTE Prophylaxis VTE Prophylaxis Intervention: LMWH, SCD's Lines/Catheters IV Catheter Type (from Nrsg): Peripheral IV Urinary Cath still in place: No Assessment/Plan Assessment/Plan SBF negative, multiple BM, heplock IV, regular diet, D/C planning for tomorrow, I will remove SIMON prior to discharge. Subjective 24 Hr Interval Summary Free Text/Dictation Multiple BM after SBF Exam/Review of Systems Vital Signs Vitals Vital Signs Date Time Temp Pulse Resp B/P Pulse Ox O2 Delivery O2 Flow Rate FiO2 08/18/17 07:28 98.2 82 14 126/63 97 Intake and Output 08/17/17 08/17/17 08/18/17 14:59 22:59 06:59 Intake Total 500 ml 1200 ml 1400 ml Output Total 25 ml 830 ml 204 ml Balance 475 ml 370 ml 1196 ml Exam Gastrointestinal: soft Results Result Diagram: 08/18/17 0516 08/18/17 0516 Results 24 hrs Laboratory Tests Test 08/18/17 05:16 White Blood Count 10.6 Red Blood Count 4.02 L Hemoglobin 10.8 L Hematocrit 33.5 L Mean Corpuscular Volume 83.3 Mean Corpuscular Hemoglobin 26.9 L Mean Corpuscular Hemoglobin Concent 32.2 Red Cell Distribution Width 14.0 Platelet Count 479 H Mean Platelet Volume 10.5 H Neutrophils % 68.7 Lymphocytes % 18.0 Monocytes % 8.6 Eosinophils % 3.4 Basophils % 0.3 Nucleated Red Blood Cells % 0.0 Neutrophils # 7.3 Lymphocytes # 1.9 Monocytes # 0.9 Eosinophils # 0.4 Basophils # 0.0 Nucleated Red Blood Cells # 0.0 Sodium Level 140 Potassium Level 3.7 Chloride Level 103 Carbon Dioxide Level 28 Anion Gap 13 Blood Urea Nitrogen 11 Creatinine 0.56 Glucose Level 110 Calcium Level 8.8 Magnesium Level 1.8 Medications Medications Current Medications Acetaminophen/ Hydrocodone Bitart ([place] (5/325)) 1 tab Q6H PRN PO PAIN LEVEL 6 -10 Last administered on 08/12/17t 12:32; Admin Dose 1 TAB; Start 08/08/17 at 15:30 Acetaminophen/ Hydrocodone Bitart ([place] (10/325)) 1 tab Q6H PRN PO PAIN Last administered on 08/13/17 15:01; Admin Dose 1 TAB; Start 08/08/17 at 15:30 Diphenhydramine HCl (Benadryl) 25 mg Q6H PRN IV ITCHING; Start 08/08/17 at 15: 30 Enoxaparin Sodium (Lovenox) 40 mg DAILY@07 SC Last administered on 08/18/17 06 :30; Admin Dose 40 MG; Start 08/09/17 at 07:00 Naloxone HCl (Narcan) 0.2 mg Q2M PRN IV RR 8 BREATHS/MIN OR LESS; Start at 19:30 Acetaminophen (Tylenol Tab) 650 mg Q4H PRN PO PAIN AND OR ELEVATED TEMP Last administered on 08/11/17 15:10; Admin Dose 650 MG; Start 08/11/17 at 15:30 Hydromorphone HCl (Dilaudid) 1 mg Q2H PRN IV pain Last administered on 08:40; Admin Dose 1 MG; Start 08/11/17 at 22:00 Hard Fat/ Phenylephrine (Anusol Supp) 1 supp TID PRN [place] HEMORROID PAIN/ITCHING Last administered on 08/13/17 08:53; Admin Dose 1 SUPP; Start 08/12/17 at 18:00 Hydromorphone HCl (Dilaudid) 1 mg Q6H PRN PO PAIN LEVEL 8-10; Start 08/12/17 at 18:00 Magnesium Hydroxide (Milk Of Mag) 30 ml DAILY PRN PO CONSTIPATION; Start at 11:00 Bisacodyl (Dulcolax) 10 mg DAILY PRN PO CONSTIPATION Last administered on 12:54; Admin Dose 10 MG; Start 08/13/17 at 11:00 Docusate Sodium (Colace) 100 mg BID PO Last administered on 08/18/17 09:35; Admin Dose 100 MG; Start 08/14/17 at 21:00 Polyethylene Glycol (Miralax) 17 gm DAILY PO Last administered on 08/18/17 09: 35; Admin Dose 17 GM; Start 08/14/17 at 13:30 Ondansetron HCl 4 mg 4 mg Q4 PRN IV NAUSEA AND/OR VOMITING Last administered on 08/16/17 16:14; Admin Dose 4 MG; Start 08/15/17 at 17:00 Dextrose/Sodium Chloride (D5-1/2ns) 1,000 ml @ 80 mls/hr [id number] IV Last administered on 08/18/17 09:35; Admin Dose 80 MLS/HR; Start 08/18/17 at 09:00 Famotidine (Pepcid Iv) 20 mg DAILY IV Last administered on 08/18/17 09:35; Admin Dose 20 MG; Start 08/18/17 at 09:00 PRECIOUS SHAY MD Aug 18, 2017 10:00
--- NOTE | 2017-08-18 11:18 | PDOCDIS ---
Discharge Instructions DIAGNOSIS Discharge Diagnosis 1.Ovarian cancer S/P Hysterectomy,bilateral salpingo oophorectomy , intraperitoneal paul dissection . Early stage per surgical approach. 2.Post op Ileus /delayed gastric emptying. 3.Intractable N/V due to ileus . Normal repeated small bowel follow through 3.constipation ( resolved) CONDITION Patient Condition: Fair HOME CARE INSTRUCTIONS: Diet Instructions: RegularSpecial Diet: clear liquids ACTIVITY: Activity Restrictions: Slowly Increase Activity FOLLOW UP/APPOINTMENTS Follow-up Plan Follow up with Dr. Benson Stephenson per his recommendation ART URIBE MD Aug 18, 2017 11:18
[2017-08-18] MEDS ORDERED: METO10TA96 PO (11:21)
[2017-08-18] MEDS ORDERED: UDMOM PO (11:21)
[2017-08-18] MEDS ORDERED: TRAM50TA2 PO (11:23)
--- NOTE | 2017-08-18 11:31 | DS ---
Date/Time of Note Date/Time of Note DATE: 08/18/17 TIME: 11:29 Discharge Summary Admission/Discharge Info Admit Date/Time Aug 08, 2017 at 09:10 Discharge Date/Time 08/19/2017 Discharge Diagnosis 1.Ovarian cancer S/P Hysterectomy,bilateral salpingo oophorectomy , intraperitoneal paul dissection . Early stage per surgical approach. 2.Post op Ileus /delayed gastric emptying. 3.Intractable N/V due to ileus . Normal repeated small bowel follow through om 3.constipation ( resolved) Patient Condition: Fair Consults Dr Sanju Stephenson did hysterectomy,bilateral salpingo oophorectomy and intraperitoneal paul dissection. Procedures hysterectomy,bilateral salpingo oophorectomy and intraperitoneal paul dissection. Hx of Present Illness This is a 46 years old [place] lady without significant medical illness who was admitted here at this time due to large right ovarian cancer requiring exploratory laparotomy,total hysterectomy,bilateral salpingo oophorectomy and intraperitoneal paul dissection. Dr. Stephenson was surgeon who did the the procedure . Hospital Course This is a 46 years old [place] lady without significant medical illness who was admitted here at this time due to large right ovarian cancer. Then she has got hysterectomy,bilateral salpingo oophorectomy and intraperitoneal paul dissection. After the surgery ,she then developed partial small bowel obstruction and delayed gastric emptying which was resolved after supportive care with NG tube suctioning,IV Reglan and NPO for more than 48 hrs. Finally ,her intractable N/V was resolved . Repeated small bowel follow through showed normal transit . She finally has got advanced diet to regular diet since yesterday. She is medically stable to discharged home today after SIMON drain removed by Dr. Stephenson. Home Meds Active Scripts Hydrocodone Bit-Acetaminophen (Hydrocodone Bit-APAP) 5-325MG Tablet, 1 TAB PO Q6H Y for PAIN LEVEL 6-10, #40 TAB Prov:PRECIOUS STEPHENSON MD 08/19/17 Tramadol HCl (Tramadol HCl) 50 Mg Tablet, 50 MG PO Q8H Y for PAIN LEVEL 6-10 for 10 Days, #60 TAB Prov:ART URIBE MD 08/18/17 Metoclopramide Hcl* (Metoclopramide Hcl*) 10 Mg Tablet, 10 MG PO TID Y for NAUSEA, #30 TAB Prov:ART URIBE MD 08/18/17 Magnesium Hydroxide* (Jade' MOM*) 30 Ml Susp, 30 ML PO DAILY Y for CONSTIPATION for 10 Days, #1 BOTTLE Prov:ART URIBE MD 08/18/17 Follow-up Plan Follow up with Dr. Precious Stephenson in 1-2 week (please provide the patient Dr. Stephenson ofice number to call for appointment. Follow up with her PCP in 1 week upon discharge Primary Care Provider Rashad Bellamy MD Time spent on discharge: > 30 minutes Pending Labs Laboratory Tests Test 08/18/17 05:16 White Blood Count 10.610^3/ul (4.8-10.8) Red Blood Count 4.0210^6/ul (4.20-5.40) Hemoglobin 10.8g/dl (12.0-16.0) Hematocrit 33.5% (37.0-47.0) Mean Corpuscular Volume 83.3fl (82.0-101.0) Mean Corpuscular Hemoglobin 26.9pg (29.0-33.0) Mean Corpuscular Hemoglobin Concent 32.2g/dl (32.0-37.0) Red Cell Distribution Width 14.0% (11.5-14.5) Platelet Count 20608^3/UL (140-415) Mean Platelet Volume 10.5fl (7.4-10.4) Neutrophils % 68.7% (39.0-77.0) Lymphocytes % 18.0% (15.0-51.0) Monocytes % 8.6% (0.0-11.0) Eosinophils % 3.4% (0.0-7.0) Basophils % 0.3% (0.0-2.0) Nucleated Red Blood Cells % 0.0/100WBC (0.0-0.0) Neutrophils # 7.310^3/ul (1.6-7.5) Lymphocytes # 1.910^3/ul (0.8-2.9) Monocytes # 0.910^3/ul (0.3-0.9) Eosinophils # 0.410^3/ul (0.0-0.5) Basophils # 0.010^3/ul (0.0-0.1) Nucleated Red Blood Cells # 0.010^3/ul (0.0-0.0) Sodium Level 140mmol/L (135-144) Potassium Level 3.7mmol/L (3.5-5.1) Chloride Level 103mmol/L (97-110) Carbon Dioxide Level 28mmol/L (21-31) Anion Gap 13 (8-16) Blood Urea Nitrogen 11mg/dl (7-20) Creatinine 0.56mg/dl (0.44-1.00) Glucose Level 110mg/dl (70-220) Calcium Level 8.8mg/dl (8.4-10.2) Magnesium Level 1.8mg/dl (1.7-2.5) ART URIBE MD Aug 18, 2017 11:31 ART URIBE MD Aug 18, 2017 11:31
--- NOTE | 2017-08-18 11:46 | PN ---
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 Post op : She is improved . No further ileus or delayed gastric emptying. Regular diet resuemed Ambulate as much as possible Avoid narcotic meds and stool softener given as needed. (2) S/P bilateral salpingo-oophorectomy Status: Resolved Comment: Post op care per Dr. Stephenson recommendation. (3) S/P appendectomy Status: Resolved Comment: Post op care per Dr. Stephenson recommendation. (4) S/P total hysterectomy Status: Resolved Comment: Post op care per Dr. Stephenson recommendation. (5) Postoperative ileus Status: Resolved Comment: Ambulate as much as possible. Reglan as needed. (6) Delayed gastric emptying Status: Resolved Comment: Ambulate as much as possible. Cont'd Hospitalization Reason: SIMON drain will be removed tomorrow by Dr. Stephenson Subjective 24 Hr Interval Summary Free Text/Dictation She is doing better. No N/V . She was eating regular diet in this morning without N/V nor abdominal pain. NG tube removed since yesterday She was seen by today and the discharge plan is tomorrow after SIMON drain removed by Dr. Stephenson. Ileus was resolved. She denied intractable N/V. No fever or chill. No abdominal pain, She denied chest pain or epigastric pain .No heart burn. Constitutional: no complaints, No chills, No diaphoresis, No disoriented, No febrile, No improved, No other , No poor po, No requiring IVF, No requiring O2 Eyes: No discharge, No no complaints, No other, No pain, No redness, No visual change ENT: No bleeding, No congestion, No discharge, No dysphagia, No no complaints, No other, No pain, No sore throat Respiratory: No cough, No no complaints, No other, No pain, No pleuritic pain, No shortness of breath, No sputum, No wheezing Cardiovascular: No chest pain, No edema, No lightheadedness, No no complaints, No orthopenea, No other, No palpitations, No paroxysmal nocturnal dyspnea Gastrointestinal: No blood, No constipation, No decreased appetite, No diarrhea , No flatus, No nausea, No no complaints, No other, No pain, No passing stool, No vomiting Musculoskeletal: No back pain, No bone/joint pain, No neck pain, No no complaints, No other, No restricted range of motion, No swelling Skin: No bruising, No erythema, No laceration, No no complaints, No other, No pruritis, No rash, No skin lesions Neurologic: No confusion, No dizziness, No focal-weakness, No headache, No no complaints, No other, No seizure, No syncope Endocrine: No dry skin, No no complaints, No other, No polydypsia, No polyuria , No temp intolerance Lymphatic: No adenopathy, No lymphadema, No no complaints, No other, No tender nodes Psychological: No anxiety, No confusion, No depression, No nl mood/affect, No no complaints, No other, No suicidal Exam/Review of Systems Vital Signs Vitals Vital Signs Date Time Temp Pulse Resp B/P Pulse Ox O2 Delivery O2 Flow Rate FiO2 08/18/17 07:28 98.2 82 14 126/63 97 Intake and Output 08/17/17 08/17/17 08/18/17 15:00 23:00 07:00 Intake Total 500 ml 1200 ml 1400 ml Output Total 25 ml 830 ml 204 ml Balance 475 ml 370 ml 1196 ml Exam Constitutional: alert, oriented, well developed Psych: nl mood/affect, No anxiety, No confusion, No depression, No no complaints, No other, No suicidal Head: atraumatic, normocephalic, No hematomas, No lacerations, No other Eyes: EOMI, PERRL, nl lids, nl sclera, other (mildly pallor), No fundi, disc, No icteric ENMT: intubated, mucosa pink and moist, nl external ears & nose, nl lips & teeth, nl nasal mucosa & septum, other, tympanic membranes Neck: non-tender, supple, No bruits, No jvd, No masses, No nuchal rigidity, No other, No thyromegaly Respiratory: clear to auscultation, normal air movement Cardiovascular: nl pulses, regular rate and rhythm, No S3, No S4, No bruits, No diastolic murmur, No edema, No gallop, No irregular rhythm, No jugular venous distention (JVD), No murmurs/extra sounds, No other, No rub, No systolic murmur Gastrointestinal: nl liver, spleen, non-tender, soft, No ascites, No bowel sounds, No distended, No firm, No hepatomegaly, No mass , No other, No rebound or guarding, No splenomegaly, No surgical scars, No tender Musculoskeletal: nl extremities to inspection, nl gait and stance, No joint tenderness, No muscle tone, No muscle weakness, No other, No range of motion, No spine non-tender, No swelling Extremities: normal pulses, No calf tenderness, No clubbing, No cyanosis, No edema, No other, No palpable cord, No pitting pedal edema, No tenderness Neurological: [employer] II-XII intact, nl mental status, nl speech, nl strength Skin: nl turgor, No diaphoresis, No ecchymosis, No laceration, No other, No puncture, No rash or lesions Results Result Diagram: 08/18/17 0516 08/18/17 0516 Results 24 hrs Laboratory Tests Test 08/18/17 05:16 White Blood Count 10.6 Red Blood Count 4.02 L Hemoglobin 10.8 L Hematocrit 33.5 L Mean Corpuscular Volume 83.3 Mean Corpuscular Hemoglobin 26.9 L Mean Corpuscular Hemoglobin Concent 32.2 Red Cell Distribution Width 14.0 Platelet Count 479 H Mean Platelet Volume 10.5 H Neutrophils % 68.7 Lymphocytes % 18.0 Monocytes % 8.6 Eosinophils % 3.4 Basophils % 0.3 Nucleated Red Blood Cells % 0.0 Neutrophils # 7.3 Lymphocytes # 1.9 Monocytes # 0.9 Eosinophils # 0.4 Basophils # 0.0 Nucleated Red Blood Cells # 0.0 Sodium Level 140 Potassium Level 3.7 Chloride Level 103 Carbon Dioxide Level 28 Anion Gap 13 Blood Urea Nitrogen 11 Creatinine 0.56 Glucose Level 110 Calcium Level 8.8 Magnesium Level 1.8 Medications Medications Current Medications Acetaminophen/ Hydrocodone Bitart ([place] (5/325)) 1 tab Q6H PRN PO PAIN LEVEL 6 -10 Last administered on 08/12/17 12:32; Admin Dose 1 TAB; Start 08/08/17 at 15:30 Acetaminophen/ Hydrocodone Bitart ([place] (10/325)) 1 tab Q6H PRN PO PAIN Last administered on 08/13/17 15:01; Admin Dose 1 TAB; Start 08/08/17 at 15:30 Diphenhydramine HCl (Benadryl) 25 mg Q6H PRN IV ITCHING; Start 08/08/17 at 15: 30 Enoxaparin Sodium (Lovenox) 40 mg DAILY@07 SC Last administered on 08/18/17 06 :30; Admin Dose 40 MG; Start 08/09/17 at 07:00 Naloxone HCl (Narcan) 0.2 mg Q2M PRN IV RR 8 BREATHS/MIN OR LESS; Start at 19:30 Acetaminophen (Tylenol Tab) 650 mg Q4H PRN PO PAIN AND OR ELEVATED TEMP Last administered on 08/11/17 15:10; Admin Dose 650 MG; Start 08/11/17 at 15:30 Hydromorphone HCl (Dilaudid) 1 mg Q2H PRN IV pain Last administered on 08:40; Admin Dose 1 MG; Start 08/11/17 at 22:00 Hard Fat/ Phenylephrine (Anusol Supp) 1 supp TID PRN [place] HEMORROID PAIN/ITCHING Last administered on 08/13/17 08:53; Admin Dose 1 SUPP; Start 08/12/17 at 18:00 Hydromorphone HCl (Dilaudid) 1 mg Q6H PRN PO PAIN LEVEL 8-10; Start 08/12/17 at 18:00 Magnesium Hydroxide (Milk Of Mag) 30 ml DAILY PRN PO CONSTIPATION; Start at 11:00 Bisacodyl (Dulcolax) 10 mg DAILY PRN PO CONSTIPATION Last administered on 12:54; Admin Dose 10 MG; Start 08/13/17 at 11:00 Docusate Sodium (Colace) 100 mg BID PO Last administered on 08/18/17 09:35; Admin Dose 100 MG; Start 08/14/17 at 21:00 Polyethylene Glycol (Miralax) 17 gm DAILY PO Last administered on 08/18/17 09: 35; Admin Dose 17 GM; Start 08/14/17 at 13:30 Ondansetron HCl (Zofran Inj) 4 mg Q4 PRN IV NAUSEA AND/OR VOMITING Last administered on 08/16/17 16:14; Admin Dose 4 MG; Start 08/15/17 at 17:00 Famotidine (Pepcid Iv) 20 mg DAILY IV Last administered on 08/18/17 09:35; Admin Dose 20 MG; Start 08/18/17 at 09:00 Procedures Procedures 1.Exploratory laparotomy. 2. Total abdominal hysterectomy with bilateral salpingo-oophorectomy. 3. Complete omentectomy. 4. Appendectomy. 5. Lymph node debulking. 6. Tumor debulking. 7. Intraperitoneal chemotherapy port placement. RAT URIBE MD Aug 18, 2017 11:45
[2017-08-19 02:19] VITALS: BP 133/79; PULSE 86; RESP 16
[2017-08-19 05:24] LABS: BASOPHIL # 0.1 10^3/ul (0.0-0.1); BASOPHILS % 0.5 % (0.0-2.0); EOSINOPHILS # 0.3 10^3/ul (0.0-0.5); EOSINOPHILS % 3.1 % (0.0-7.0); HEMATOCRIT 35.7 % (37.0-47.0); HEMOGLOBIN 11.4 g/dl (12.0-16.0); LYMPHOCYTES # 2.2 10^3/ul (0.8-2.9); LYMPHOCYTES % 22.6 % (15.0-51.0); MEAN CORPUSCULAR HEMOGLOBIN 26.5 pg (29.0-33.0); MEAN CORPUSCULAR HGB CONC 31.9 g/dl (32.0-37.0); MEAN CORPUSCULAR VOLUME 82.8 fl (82.0-101.0); MEAN PLATELET VOLUME 10.3 fl (7.4-10.4); MONOCYTE # 0.7 10^3/ul (0.3-0.9); MONOCYTES % 7.7 % (0.0-11.0); NEUTROPHIL # 6.2 10^3/ul (1.6-7.5); NEUTROPHILS % 65.1 % (39.0-77.0); PLATELET COUNT 473 10^3/UL (140-415); RED BLOOD COUNT 4.31 10^6/ul (4.20-5.40); RED CELL DISTRIBUTION WIDTH 14.1 % (11.5-14.5); WHITE BLOOD COUNT 9.6 10^3/ul (4.8-10.8)
[2017-08-19 06:22] LABS: CREATININE 0.55 mg/dl (0.44-1.00); POTASSIUM 3.8 mmol/L (3.5-5.1)
[2017-08-19] MEDS: ENOXAPARIN 40 MG/0.4 ML SYG SC SCH ×3 (06:36→10:05)
[2017-08-19 07:50] VITALS: BP 144/83; PULSE 81; RESP 18
[2017-08-19] MEDS: DOCUSATE SODIUM 100 MG CAP PO SCH (09:58)
[2017-08-19] MEDS: POLYETHYLENE GLYCOL 17 GM PACKET PO SCH (09:58)
[2017-08-19] MEDS: FAMOTIDINE 20 MG INJ IV SCH (09:58)
--- NOTE | 2017-08-19 10:02 | PD.PPDC ---
DISTRICT [facility] OFFICE DIRECTOR Discharge Instruction Diagnosis Final Diagnosis: Ovarian cancer Condition Patient Condition: Good Diet Diet: Resume Regular Diet Activity/Restrictions Activity: Normal Activity May Shower Restrictions: No Lifting Wound/Drain Care Instructions Wound/Drain Care Instructions: Keep clean and dry Follow-up Follow-up with Physician: 1, Week/Weeks Return to clinic for COVER REMOVER Instructions: Fever greater than 101 Worsening abdominal pain PRECIOUS SHAY MD Aug 19, 2017 10:02
[2017-08-19] MEDS ORDERED: HYDR-3498 PO (10:03)
--- NOTE | 2017-08-19 10:07 | PN ---
Date/Time of Note Date/Time of Note DATE: 08/19/17 TIME: 10:06 Assessment/Plan VTE Prophylaxis VTE Prophylaxis Intervention: LMWH, SCD's Lines/Catheters IV Catheter Type (from Nrsg): Saline Lock Urinary Cath still in place: No Assessment/Plan Assessment/Plan Post op, D/C home today. [place]/Reglan prescription Subjective 24 Hr Interval Summary Free Text/Dictation Doing better, no nausea Exam/Review of Systems Vital Signs Vitals Vital Signs Date Time Temp Pulse Resp B/P Pulse Ox O2 Delivery O2 Flow Rate FiO2 08/19/17 07:50 97.8 81 18 144/83 96 Room Air Intake and Output 08/18/17 08/18/17 08/19/17 15:00 23:00 07:00 Intake Total 280 ml 1740 ml Output Total 1230 ml 40 ml Balance 280 ml 510 ml -40 ml Exam Gastrointestinal: soft (SIMON removed.) Results Result Diagram: 08/19/17 0458 08/19/17 0458 Results 24 hrs Laboratory Tests Test 08/19/17 04:58 White Blood Count 9.6 Red Blood Count 4.31 Hemoglobin 11.4 L Hematocrit 35.7 L Mean Corpuscular Volume 82.8 Mean Corpuscular Hemoglobin 26.5 L Mean Corpuscular Hemoglobin Concent 31.9 L Red Cell Distribution Width 14.1 Platelet Count 473 H Mean Platelet Volume 10.3 Neutrophils % 65.1 Lymphocytes % 22.6 Monocytes % 7.7 Eosinophils % 3.1 Basophils % 0.5 Nucleated Red Blood Cells % 0.0 Neutrophils # 6.2 Lymphocytes # 2.2 Monocytes # 0.7 Eosinophils # 0.3 Basophils # 0.1 Nucleated Red Blood Cells # 0.0 Sodium Level 140 Potassium Level 3.8 Chloride Level 100 Carbon Dioxide Level 30 Anion Gap 14 Blood Urea Nitrogen 7 Creatinine 0.55 Glucose Level 105 Calcium Level 9.0 Medications Medications Current Medications Acetaminophen/ Hydrocodone Bitart ([place] (5/325)) 1 tab Q6H PRN PO PAIN LEVEL 6 -10 Last administered on 08/12/17 12:32; Admin Dose 1 TAB; Start 08/08/17 at 15:30 Acetaminophen/ Hydrocodone Bitart ([place] (10/325)) 1 tab Q6H PRN PO PAIN Last administered on 08/13/17 15:01; Admin Dose 1 TAB; Start 08/08/17 at 15:30 Diphenhydramine HCl (Benadryl) 25 mg Q6H PRN IV ITCHING; Start 08/08/17 at 15: 30 Enoxaparin Sodium (Lovenox) 40 mg DAILY@07 SC Last administered on 08/19/17 06:36; Admin Dose 40 MG; Start 08/09/17 at 07:00 Naloxone HCl (Narcan) 0.2 mg Q2M PRN IV RR 8 BREATHS/MIN OR LESS; Start at 19:30 Acetaminophen (Tylenol Tab) 650 mg Q4H PRN PO PAIN AND OR ELEVATED TEMP Last administered on 08/11/17 15:10; Admin Dose 650 MG; Start 08/11/17 at 15:30 Hydromorphone HCl (Dilaudid) 1 mg Q2H PRN IV pain Last administered on 08:40; Admin Dose 1 MG; Start 08/11/17 at 22:00 Hard Fat/ Phenylephrine (Anusol Supp) 1 supp TID PRN [place] HEMORROID PAIN/ITCHING Last administered on 08/13/17 08:53; Admin Dose 1 SUPP; Start 08/12/17 at 18:00 Hydromorphone HCl (Dilaudid) 1 mg Q6H PRN PO PAIN LEVEL 8-10; Start 08/12/17 at 18:00 Magnesium Hydroxide (Milk Of Mag) 30 ml DAILY PRN PO CONSTIPATION; Start at 11:00 Bisacodyl (Dulcolax) 10 mg DAILY PRN PO CONSTIPATION Last administered on 12:54; Admin Dose 10 MG; Start 08/13/17 at 11:00 Docusate Sodium (Colace) 100 mg BID PO Last administered on 08/18/17 21:10; Admin Dose 100 MG; Start 08/14/17 at 21:00 Polyethylene Glycol (Miralax) 17 gm DAILY PO Last administered on 08/18/17 09: 35; Admin Dose 17 GM; Start 08/14/17 at 13:30 Ondansetron HCl (Zofran Inj) 4 mg Q4 PRN IV NAUSEA AND/OR VOMITING Last administered on 08/16/17 16:14; Admin Dose 4 MG; Start 08/15/17 at 17:00 Famotidine (Pepcid Iv) 20 mg DAILY IV Last administered on 08/18/17t 09:35; Admin Dose 20 MG; Start 08/18/17 at 09:00 PRECIOUS SHAY MD Aug 19, 2017 10:07
--- NOTE | 2017-08-19 10:24 | DS ---
Date/Time of Note Date/Time of Note DATE: 08/19/17 TIME: 10:23 Discharge Summary Admission/Discharge Info Admit Date/Time Aug 08, 2017 at 09:10 Discharge Date/Time 08/19/2017 Discharge Diagnosis 1.Ovarian cancer S/P Hysterectomy,bilateral salpingo oophorectomy , intraperitoneal paul dissection . Early stage per surgical approach. 2.Post op Ileus /delayed gastric emptying. 3.Intractable N/V due to ileus . Normal repeated small bowel follow through om 3.constipation ( resolved) Patient Condition: Good Consults Dr. Precious Stephenson Procedures S/P Hysterectomy,bilateral salpingo oophorectomy ,intraperitoneal paul dissection . Hx of Present Illness This is a 46 years old [place] lady without significant medical illness who was admitted here at this time due to large right ovarian cancer requiring exploratory laparotomy,total hysterectomy,bilateral salpingo oophorectomy and intraperitoneal paul dissection. Dr. Stephenson was surgeon who did the the procedure . Hospital Course This is a 46 years old [place] lady without significant medical illness who was admitted here at this time due to large right ovarian cancer. Then she has got hysterectomy,bilateral salpingo oophorectomy and intraperitoneal paul dissection. After the surgery ,she then developed partial small bowel obstruction and delayed gastric emptying which was resolved after supportive care with NG tube suctioning,IV Reglan and NPO for more than 48 hrs. Finally ,her intractable N/V was resolved . Repeated small bowel follow through showed normal transit . She finally has got advanced diet to regular diet since yesterday. She is medically stable to discharged home today after SIMON drain removed by Dr. Stephenson. Vital Signs Date Time Temp Pulse Resp B/P Pulse Ox O2 Delivery O2 Flow Rate FiO2 08/19/17 07:50 97.8 81 18 144/83 96 Room Air Const: she is alert and oriented to herself,place and time. No acute distress. No fever nor chill. No abdominal pain. Head: Atraumatic scalp. Eyes: mild pallor but normal conjunctiva] ENT: Normal External Ears, Nose and Mouth. Neck: Full range of motion. No meningismus. Resp: Clear to auscultation bilaterally Cardio: Regular rate and rhythm, no murmurs Abd: Soft, non tender, non distended. Normal bowel sounds. Skin: No petechiae or rashes Back: No midline or flank tenderness Ext: No cyanosis, or edema. Neuro: Awake and alert Psych: Normal Mood and Affect Home Meds Active Scripts Hydrocodone Bit-Acetaminophen (Hydrocodone Bit-APAP) 5-325MG Tablet, 1 TAB PO Q6H Y for PAIN LEVEL 6-10, #40 TAB Prov:PRECIOUS STEPHENSON MD 08/19/17 Tramadol HCl (Tramadol HCl) 50 Mg Tablet, 50 MG PO Q8H Y for PAIN LEVEL 6-10 for 10 Days, #60 TAB Prov:ART URIBE MD 08/18/17 Metoclopramide Hcl* (Metoclopramide Hcl*) 10 Mg Tablet, 10 MG PO TID Y for NAUSEA, #30 TAB Prov:ART URIBE MD 08/18/17 Magnesium Hydroxide* (Jade' MOM*) 30 Ml Susp, 30 ML PO DAILY Y for CONSTIPATION for 10 Days, #1 BOTTLE Prov:ART URIBE MD 08/18/17 Follow-up Plan Follow up with Dr. Precious Stephenson in 1-2 week (please provide the patient Dr. Stephenson ofice number to call for appointment. Follow up with her PCP in 1 week upon discharge Primary Care Provider Rashad Bellamy MD Time spent on discharge: > 30 minutes Pending Labs Laboratory Tests Test 08/19/17 04:58 White Blood Count 9.610^3/ul (4.8-10.8) Red Blood Count 4.3110^6/ul (4.20-5.40) Hemoglobin 11.4g/dl (12.0-16.0) Hematocrit 35.7% (37.0-47.0) Mean Corpuscular Volume 82.8fl (82.0-101.0) Mean Corpuscular Hemoglobin 26.5pg (29.0-33.0) Mean Corpuscular Hemoglobin Concent 31.9g/dl (32.0-37.0) Red Cell Distribution Width 14.1% (11.5-14.5) Platelet Count 91693^3/UL (140-415) Mean Platelet Volume 10.3fl (7.4-10.4) Neutrophils % 65.1% (39.0-77.0) Lymphocytes % 22.6% (15.0-51.0) Monocytes % 7.7% (0.0-11.0) Eosinophils % 3.1% (0.0-7.0) Basophils % 0.5% (0.0-2.0) Nucleated Red Blood Cells % 0.0/100WBC (0.0-0.0) Neutrophils # 6.210^3/ul (1.6-7.5) Lymphocytes # 2.210^3/ul (0.8-2.9) Monocytes # 0.710^3/ul (0.3-0.9) Eosinophils # 0.310^3/ul (0.0-0.5) Basophils # 0.110^3/ul (0.0-0.1) Nucleated Red Blood Cells # 0.010^3/ul (0.0-0.0) Sodium Level 140mmol/L (135-144) Potassium Level 3.8mmol/L (3.5-5.1) Chloride Level 100mmol/L (97-110) Carbon Dioxide Level 30mmol/L (21-31) Anion Gap 14 (8-16) Blood Urea Nitrogen 7mg/dl (7-20) Creatinine 0.55mg/dl (0.44-1.00) Glucose Level 105mg/dl (70-220) Calcium Level 9.0mg/dl (8.4-10.2) Copies To: CC: PRECIOUS STEPHENSON MD, NARUCHON MD Aug 19, 2017 10:24
[2017-08-19 11:30] VITALS: BP 129/71; PULSE 73; RESP 18
== END 2017-08-19 12:30 | disposition still patient (30) | DRG 737 ==
LOC: REC 09:10 → MS2 18:00
PROVIDERS: ADMIT Obstetrics & Gynecology Gynecologic Oncology; ATTEND Obstetrics & Gynecology Gynecologic Oncology
PROC: 0DTJ0ZZ Resection of Appendix, Open Approach (ICD-10-PCS; 2017-08-08)
PROC: 0DBU0ZZ Excision of Omentum, Open Approach (ICD-10-PCS; 2017-08-08)
PROC: 0UT70ZZ Resection of Bilateral Fallopian Tubes, Open Approach (ICD-10-PCS; 2017-08-08)
PROC: 0UT20ZZ Resection of Bilateral Ovaries, Open Approach (ICD-10-PCS; 2017-08-08)
PROC: 07BC0ZZ Excision of Pelvis Lymphatic, Open Approach (ICD-10-PCS; 2017-08-08)
PROC: 0WHG03Z Insertion of Infusion Device into Peritoneal Cavity, Open Approach (ICD-10-PCS; 2017-08-08)
PROC: 0UT90ZZ Resection of Uterus, Open Approach (ICD-10-PCS; principal; 2017-08-08 11:00)
DX: C56.1 Malignant neoplasm of right ovary (principal); K56.7 Ileus, unspecified; C79.89 Secondary malignant neoplasm of other specified sites; K30 Functional dyspepsia
CPT/HCPCS: 71010; 74010; 74176; 74250; 80048; 80053; 83735; 84100; 84703; 85025; 86850; 86900; 86901; 87086; 88104; 88304; 88305; 88307; 88331; 93005; 97116; 97163; 97530; C1788; J1100; J1170; J1650; J2175; J2250; J2274; J2370; J2405; J2765; J3010; J3475; J3480; J7030; J7042; Q9967

== ENCOUNTER 2019-01-11 12:51 | Inpatient (IN) | payer OTHER ==
[~2019-01-11] VITALS: Ht 157.5 cm; Wt 67.0 kg
[~2019-01-11 12:51] MED LIST changes: -EPHEDrine SULFATE 50 MG/5 ML SYG ONE; +HYDR-3601 PO; +METO10TA3 PO; +TRAM50TA2 PO; +UDMOM PO
[2019-01-11] MEDS ORDERED: SOD CHLORIDE 0.9% 1,000 ML IV STA (13:04)
--- NOTE | 2019-01-11 13:14 | ERD ---
ER Documentation Chief Complaint Chief Complaint AMS HPI This is a 48-year-old with a history of ovarian cancer who is on hospice. She has been on hospice for 1 week at this time. The patient has had an increase in her Lasix dose from 40 to 60 mg a day to treat her peripheral lower extremity edema. The sister is here and states that last week she was awake and active and talking and doing some mild exercise, but since the medication adjustment the patient has become more and more lethargic over the past couple of days. No fever, GI symptoms, neurological symptoms, no cough, the patient states that she is in no pain. The family has not decided any advanced directives ROS All systems reviewed and are negative except as per history of present illness. Medications Home Meds Reported Medications Potassium Chloride* (K-Dur*) 10 Meq Tab.prt.sr, 10 MEQ PO DAILY, TAB 01/11/19 Furosemide* (Furosemide*) 40 Mg Tablet, 40 MG PO DAILY, TAB 01/11/19 Discontinued Scripts Hydrocodone Bit-Acetaminophen (Hydrocodone Bit-APAP) 5-325MG Tablet, 1 TAB PO Q6H PRN for PAIN LEVEL 6-10, #40 TAB Prov:PRECIOUS SHAY MD 08/19/17 Tramadol HCl (Tramadol HCl) 50 Mg Tablet, 50 MG PO Q8H PRN for PAIN LEVEL 6-10 for 10 Days, #60 TAB Prov:ART URIBE MD 08/18/17 Metoclopramide Hcl* (Metoclopramide Hcl*) 10 Mg Tablet, 10 MG PO TID PRN for NAUSEA, #30 TAB Prov:ART URIBE MD 08/18/17 Magnesium Hydroxide* (Jade' MOM*) 30 Ml Susp, 30 ML PO DAILY PRN for CO NSTIPATION for 10 Days, #1 BOTTLE Prov:ART URIBE MD 08/18/17 Allergies Allergies: Coded Allergies: No Known Allergy (Unverified , 01/11/19) PMhx/Soc History of Surgery: Yes (GALLBLADDER, LEG SURGERY ) Anesthesia Reaction: No Hx Neurological Disorder: No Hx Respiratory Disorders: No Hx Cardiac Disorders: No Hx Psychiatric Problems: No Hx Miscellaneous Medical Probl: No Hx Alcohol Use: No Hx Substance Use: No Hx Tobacco Use: No FmHx Family History: No coronary disease Physical Exam Vitals Vital Signs Date Temp Pulse Resp B/P (MAP) Pulse Ox O2 O2 Flow FiO2 Time Delivery Rate 01/11/19 Nasal 4.0 13:43 Cannula 01/11/19 Nasal 4 13:32 Cannula 01/11/19 98.7 114 20 92/68 (76) 89 13:16 Physical Exam Const: Well-developed, well-nourished Head: Atraumatic, normocephalic Eyes: Normal Conjunctiva, PERRLA, EOMI, normal sclera, no nystagmus ENT: Normal External Ears, Nose and Mouth, moist mucus membranes. Neck: Full range of motion. No meningismus, no lymphadenopathy. Resp: Clear to auscultation bilaterally, no wheezing, rhonchi, rales Cardio: Tachycardia heart rate 114, no murmurs, S1 S2 present Abd: Soft, non tender x 4, non distended. Normal bowel sounds, no guarding or rebound, no pulsitile abdominal masses or bruits Skin: No petechiae or rashes, no ecchymosis , no maculopapular rash Back: No midline or flank tenderness Ext: No cyanosis, +4 edema to the thighs, FROM x 4, normal inspection, neurovascularly intact x 4 Neur: Very sleepy but arousable and follows commands and answers questions, STR 5/5 x 4, sensation intact x 4, no focal findings, cerebellum intact Psych: Sleepy/flat Result Diagram: 01/11/19 1340 01/11/19 1340 Results 24 hrs Laboratory Tests Test 01/11/19 13:40 White Blood Count 28.0 10^3/ul Red Blood Count 2.60 10^6/ul Hemoglobin 8.0 g/dl Hematocrit 23.7 % Mean Corpuscular Volume 91.2 fl Mean Corpuscular Hemoglobin 30.8 pg Mean Corpuscular Hemoglobin Concent 33.8 g/dl Red Cell Distribution Width 21.1 % Platelet Count 174 10^3/UL Mean Platelet Volume 9.9 fl Immature Granulocytes % 3.800 % Neutrophils % 88.7 % Lymphocytes % 2.3 % Monocytes % 4.7 % Eosinophils % 0.0 % Basophils % 0.5 % Nucleated Red Blood Cells % 0.1 /100WBC Immature Granulocytes # 1.050 10^3/ul Neutrophils # 24.8 10^3/ul Lymphocytes # 0.7 10^3/ul Monocytes # 1.3 10^3/ul Eosinophils # 0.0 10^3/ul Basophils # 0.1 10^3/ul Nucleated Red Blood Cells # 0.0 10^3/ul Sodium Level 128 mmol/L Potassium Level 3.7 mmol/L Chloride Level 89 mmol/L Carbon Dioxide Level 32 mmol/L Anion Gap 7 Blood Urea Nitrogen 25 mg/dl Creatinine 0.91 mg/dl Est Glomerular Filtrat Rate mL/min > 60 mL/min Glucose Level 97 mg/dl POC Venous Lactate 2.2 mmol/L Calcium Level 9.5 mg/dl Total Bilirubin 0.2 mg/dl Direct Bilirubin 0.00 mg/dl Indirect Bilirubin 0.2 mg/dl Aspartate Amino Transf (AST/SGOT) 15 IU/L Alanine Aminotransferase (ALT/SGPT) 18 IU/L Alkaline Phosphatase 225 IU/L Troponin I < 0.012 ng/ml Total Protein 4.1 g/dl Albumin 1.6 g/dl Globulin 2.50 g/dl Albumin/Globulin Ratio 0.64 Current Medications Medications Dose Sig/Noemí Start Time Status Last (Trade) Ordered Route PRN Stop Time Admin Dose Reason Admin Sodium 1,000 ml @ Q1H STAT 01/11/19 DC 01/11/19 Chloride 1,000 mls/hr IV 13:04 01/11/19 13:22 14:03 Sodium 1,910 ml BOLUS OVER 2 01/11/19 DC 01/11/19 Chloride HOURS STAT 13:43 01/11/19 15:23 (NS) IV* 13:48 Cefepime HCl 50 ml @ ONCE STAT 01/11/19 DC 01/11/19 100 mls/hr IVPB 13:43 01/11/19 15:22 14:12 Vancomycin 250 ml @ ONCE ONCE 01/11/19 DC 01/11/19 HCl 125 mls/hr IVPB 14:00 01/11/19 15:54 15:59 1 mg ONCE STAT 01/11/19 DC 01/11/19 Hydromorphone IV 14:25 01/11/19 15:22 HCl 14:26 (Dilaudid) Ondansetron 4 mg ONCE STAT 01/11/19 DC 01/11/19 HCl (Zofran IV 14:25 01/11/19 15:22 Inj) 14:26 Procedures/MDM Patient: PJ TERRELL DOB: 1970 Age: 48 Sex: F MR #: [id number] DOS: 01/11/19 1304 Ordering MD: ESTHER ANTUNEZ DO Location: E/R Room/Bed: PROCEDURE: XR Chest. CLINICAL INDICATION: chest pain TECHNIQUE: Single frontal view of the chest was obtained COMPARISON: None FINDINGS: The heart and mediastinum are within normal limits. There is a right-sided chest wall port in place. There are bilateral upper lobe and lower lobe infiltrates and moderate to large bilateral pleural effusions. There is no pneumothorax. RPTAT: AA IMPRESSION: Bilateral upper lobe and lower lobe infiltrates and moderate to large bilateral pleural effusions. .Richard Martinez MD, Date Time Electronically viewed and signed by .Richard Martinez MD, on 01/11/2019 14:09 .S/ CC: ESTHER ANTUNEZ DO [phone] Patient was experience a lot of pain when the IV fluids are going through her right Port-A-Cath. Fluids were stopped and repeated a chest x-ray.: Patient: PJ TERRELL : 1970 Age: 48 Sex: F MR #: [id number] DOS: 01/11/19 1425 Ordering MD: ESTHER ANTUNEZ DO Location: E/R Room/Bed: PROCEDURE: XR Chest. CLINICAL INDICATION: Chest pain TECHNIQUE: Single portable view of the chest was obtained. COMPARISON: 01/11/2019 at 01:23 p.m. and 08/15/2017 FINDINGS: Cardiac/vascular structures: Stable cardiomediastinal silhouette. Right IJ port tip at the cavoatrial junction. Pulmonary: Similar bilateral perihilar and basilar airspace opacities.. Moderate-sized bilateral pleural effusions. No evidence of pneumothorax. Osseous structures: Normal Soft tissues: Partially visualized port over the mid left abdomen. IMPRESSION: Similar bilateral perihilar and basilar airspace opacities representing pulmon johanny edema or infection. Moderate bilateral pleural effusions. Right IJ port in appropriate position. RPTAT:AAJJ Marie Jimenez Physician Date Time Electronically viewed and signed by Marei Jimenez Physician on 01/11/2019 15:34 MH/ CC: ESTHER ANTUNEZ DO [id number] Admit MDM: Patient's infectious symptoms have not stabilized and the patient is at risk of rapid decompensation. The patient will be admitted for careful hydration, antibiotic therapy, and infectious source control. Severe Sepsis criteria: Infectious source: Pneumonia End organ damage indicated by: Elevated lactate Lactate > 2.0 mmol/L Hypotension (SBP < 90 or >40 mmHG drop or MAP < 65) Acute Resp Failure (sat < 92% w/o oxygen) Acid Supervisor > 2.0 INR > 1.5 Plt < 100 Bili > 2 Sepsis Management: Time of recognition of severe sepsis: At time of lactate Within 3 hours of recognition: Blood cultures x 2 before broad-spectrum antibiotics: yes 30 ml/kg NS bolus completed Initial lactate 2.2 Repeat lactate pending Septic Shock Assessment: Any lactic acid > 4.0 no Persistent hypotension (SBP < 90 or 40 mmHg drop, MAP < 65) despite 30 mL/kg IV fluid bolusno A focused sepsis perfusion/reperfusion reassessment examination was performed post 30ml/kg bolus @: Temp, BP, HR, RR, Pox Persistent Hypotension Treatment: Comfort care no Hypotension caused by: pt. baseline, med-induced, erroneous value, condition other than infection no Refusal by patient/decision maker for: blood draw, IVF, Antibiotics, Pressorsno Central line Vasopressor started Norepinehrine I considered further perfusion assessment with CVP measurement, SCVO2, bedside ultrasound volume assessment, passive leg raise, trial of further fluid bolus and proceeded with. Accepting Care Team Current data and ongoing care discussed. Time: Admitting Physician: erin Food Production Associate(s): Outstanding Data: none Critical Care Time: 30 minutes Treatments/Evaluations: Close monitoring and treatment of unstable vital signs, cardiorespiratory, and neurologic status, while maintaining tight balance of fluid, respiratory, and cardiac interventions. This includes the administration of emergency fluid management while maintaining close respiratory support as well as the provision of immediate and broad-spectrum antibiotic therapy, while performing a simultaneous assessment for possible sources in order to direct targeted therapy. This time includes discussing the case with the patient and the patient's family. This time also includes the consideration for invasive and chemical support to prevent cardiopulmonary collapse. This time does not include all procedures stated elsewhere in this record. This time also includes reviewing old records, labs and radiological studies. This time includes examining and re-examining the patient. Additionally, this time also includes arranging care with admitting and consulting physicians. Departure Diagnosis: Primary Impression: Sepsis Sepsis type: sepsis due to unspecified organism Qualified Codes: A41.9 - Sepsis, unspecified organism Additional Impression: Bilateral pneumonia Pneumonia type: due to unspecified organism Lung location: lower lobe of lung Qualified Codes: J18.1 - Lobar pneumonia, unspecified organism Condition: Stable ESTHER ANTUNEZ DO January 11, 2019 13:14
[2019-01-11] MEDS ORDERED: FURO40TA4 PO (13:31)
[2019-01-11] MEDS ORDERED: POTA10TA37 PO (13:32)
[2019-01-11] MEDS ORDERED: CEFEPIME 2GM/50 ML (PMX) 50 ML IVPB STA (13:43)
[2019-01-11] MEDS ORDERED: SODIUM CHLORIDE 0.9% 1L BAG IV* STA (13:43)
[2019-01-11] MEDS ORDERED: VANCOMYCIN 1 GM (PMX) 250 ML IVPB ONE (14:00)
[2019-01-11] MEDS ORDERED: HYDROmorphONE 1 MG/ML SYG IV STA (14:25)
[2019-01-11] MEDS ORDERED: ONDANSETRON 4 MG INJ IV STA (14:25)
[2019-01-11] MEDS ORDERED: SOD CHLORIDE 0.9% 1,000 ML IV SCH (16:39)
[2019-01-11] MEDS ORDERED: ACETAMINOPHEN 325 MG TAB PO PRN (17:00)
[2019-01-11] MEDS ORDERED: ONDANSETRON 4 MG INJ IV PRN (17:00)
[2019-01-11 19:02] VITALS: PULSE 89
[2019-01-11 19:50] VITALS: Ht 157.5 cm; Wt 67.0 kg
[2019-01-11 20:00] VITALS: BP 88/55; PULSE 114; PULSE 98; RESP 18
[2019-01-11] MEDS: DEXTROSE 5%-0.9% NACL 1,000 ML IV SCH (22:46)
[2019-01-11] MEDS: PIPER-TAZO 3.375 GM IV (PMX) 100 ML IVPB SCH (22:46)
[2019-01-12] VITALS (11 sets, daily range): BP systolic 72–102; BP diastolic 44–66; PULSE 96–107; RESP 16–18
[2019-01-12] MEDS ORDERED: PIPER-TAZO 3.375 GM IV (PMX) 100 ML IVPB SCH (02:00)
[2019-01-12] MEDS: PIPER-TAZO 3.375 GM IV (PMX) 100 ML IVPB SCH ×3 (06:01→21:35)
[2019-01-12] MEDS: DEXTROSE 5%-0.9% NACL 1,000 ML IV SCH ×2 (06:01→08:45)
--- NOTE | 2019-01-12 10:39 | HP ---
DATE OF ADMISSION: 01/11/2019 CHIEF COMPLAINT: Altered mental status. HISTORY OF PRESENT ILLNESS: A 48-year-old unfortunate female with end stage ovarian cancer, on hospi ce x1 week prior to admission, was brought in by family members with complaint of altered mental stat us and subjective fevers. Family members decided on medical therapy. On review of systems, patient denies any chest pain. No shortness of breath. No abdominal pain, nausea, or vomiting. No genitour inary symptoms. Initial evaluation revealed white blood cell count of 28,000, hemoglobin of 8 and a platelet count of 174,000. Basic metabolic panel shows sodium of 128. Initial lactate was 2.2, but repeat lactate was 1.6. Chest x-ray showed bilateral perihilar and basilar airspace opacities and mo derate bilateral pleural effusions. The right IJ port was in position. According to her sister, patient received 2 courses of chemotherapy. She was found to be too weak an d malnourished to undergo further chemotherapy. At that time, decision was made to place the patient on hospice. PAST MEDICAL HISTORY: Metastatic ovarian cancer. MEDICATIONS PRIOR TO ADMISSION: 1. Lasix 40 mg p.o. daily. 2. Potassium chloride 10 mEq p.o. daily. PHYSICAL EXAMINATION GENERAL: Well-developed, ill-appearing female who is in no apparent distress. VITAL SIGNS: Stable. She is afebrile. Blood pressure 102/63, pulse 107, temperature 98.2, respirati on 18. HEENT: Extraocular muscles intact. Pupils equal and reactive to light bilaterally. Sclerae are ani cteric. Oropharynx is clear and moist. NECK: Supple. No JVD, no carotid bruits. LUNGS: Decreased breath sounds at the bases. CARDIAC: Regular rate and rhythm. No murmurs, rubs or gallops. ABDOMEN: Soft, somewhat distended, nontender, normoactive bowel sounds. EXTREMITIES: Have 3+ pitting edema bilaterally up to the thighs. NEUROLOGICAL: Nonfocal. ASSESSMENT: 1. A 48-year-old female with UTI. Rule out urosepsis. 2. Possible pneumonia. 3. End-stage ovarian cancer, on hospice prior to admission. 4. Bilateral pleural effusions, most likely malignant. 5. Malnutrition of severe degree with albumin of 1.6. PLAN: 1. Admit to Med/Surg. IV vancomycin and Rocephin, IV fluid hydration. Check blood and urine cultur e results. 2. The patient is DNR. Plan of care was discussed with her sister. Dictated By: VIKTOR LEACH/ANDREW Conf#: [id number] DID#: [id number]
[2019-01-13] VITALS (10 sets, daily range): BP systolic 94–108; BP diastolic 57–85; PULSE 90–116; RESP 17–18
[2019-01-13] MEDS: ONDANSETRON 4 MG INJ IV PRN ×2 (01:10→16:14)
[2019-01-13] MEDS: HYDROmorphONE 0.5 MG/0.5 ML SYG IV PRN (01:11)
[2019-01-13] MEDS: PIPER-TAZO 3.375 GM IV (PMX) 100 ML IVPB SCH ×3 (05:40→21:30)
[2019-01-13] MEDS: DEXTROSE 5%-0.9% NACL 1,000 ML IV SCH (05:42)
[2019-01-13] MEDS: POTASSIUM CHLORIDE (SR) 20 MEQ TAB PO SCH ×2 (08:52→21:30)
--- NOTE | 2019-01-13 09:45 | PN ---
Date/Time of Note Date/Time of Note DATE: 01/13/19 TIME: 09:42 Subjective Complains of dizziness. No abdominal pain, nausea, vomiting. Having back pain Objective Vitals Vital Signs Date Temp Pulse Resp B/P (MAP) Pulse Ox O2 O2 Flow FiO2 Time Delivery Rate 01/13/19 108 08:00 01/13/19 98.4 18 94/59 (71) 98 07:55 01/11/19 Nasal 2.0 17:46 Cannula Intake and Output 01/12/19 01/12/19 01/13/19 1515:00 23:00 07:00 IntakeIntake Total 770 ml 1000 ml OutputOutput Total 200 ml BalanceBalance 770 ml 800 ml Decreased breath sounds at bases Regular rate and rhythm Soft distended and nontender. Normoactive bowel sounds 3+ pitting edema Nonfocal Results Result Diagram: 01/13/19 0601/13/19 0611 Medications Medications Current Medications Dextrose/Sodium Chloride 1,000 ml @ 100 mls/hr Q10H IV Last administered on 01/13/19at 05:42; Admin Dose 100 MLS/HR; Start 01/11/19 at 20:30 Piperacillin Sod/ Tazobactam Sod 100 ml @ 200 mls/hr Q8 IVPB Last administered on 01/13/19at 05:40; Admin Dose 200 MLS/HR; Start 01/11/19 at 22:00 Hydromorphone HCl (Dilaudid) 0.5 mg Q3H PRN IV SEVERE PAIN LEVEL 7-10 Last administered on 01/13/19at 01:11; Admin Dose 0.5 MG; Start 01/13/19 at 01:00 Ondansetron HCl (Zofran Inj) 4 mg Q4H PRN IV NAUSEA AND/OR VOMITING Last administered on 01/13/19at 01:10; Admin Dose 4 MG; Start 01/13/19 at 01:00 Potassium Chloride (Klor-Con 20) 40 meq BID PO Last administered on 01/13/19at 08:52; Admin Dose 40 MEQ; Start 01/13/19 at 09:00; Stop 01/13/19 at 21:01 VTE Prophylaxis Risk score (from Nsg)>0 risk: 10 SCD applied (from Nsg): No SCD contraindication: patient refusal Lines/Catheters IV Catheter Type: Saline Lock Summers in Place: No Assessment/Plan Assessment/Plan 48-year-old female with UTI Rule out urosepsis. Blood cultures are so far negative Leukocytosis End-stage ovarian cancer Hypokalemia Poor prognosis DNR CODE STATUS. Patient remains an appropriate hospice candidate Continue Zosyn Discontinue IV fluid Potassium supplement VIKTOR COTTON MD January 13, 2019 09:45
[2019-01-13] MEDS ORDERED: VANCOMYCIN IV PER PHARMACY XX SCH (12:30)
[2019-01-13] MEDS ORDERED: VANCOMYCIN HCL 1.25 GM in SOD CHLORIDE 0.9% 250 ML IVPB SCH (16:00)
[2019-01-13] MEDS ORDERED: MECLIZINE 25 MG TAB PO PRN (16:30)
[2019-01-14] VITALS (8 sets, daily range): BP systolic 95–100; BP diastolic 64–73; PULSE 62–119; RESP 18–20
[2019-01-14] MEDS: HYDROmorphONE 0.5 MG/0.5 ML SYG IV PRN (01:56)
[2019-01-14] MEDS: PIPER-TAZO 3.375 GM IV (PMX) 100 ML IVPB SCH ×2 (05:49→13:08)
[2019-01-14] MEDS ORDERED: FLUCONAZOLE 200 MG TAB PO SCH (09:00)
--- NOTE | 2019-01-14 10:22 | PDOCDIS ---
Discharge Instructions CONDITION [id number] Patient Condition: [id number] Fair HOME CARE INSTRUCTIONS: [id number] Diet Instructions: [id number] Regular ACTIVITY: [id number] Activity Restrictions: [id number] Slowly Increase Activity FOLLOW UP/APPOINTMENTS Follow-up Plan home hospice VIKTOR COTTON MD January 14, 2019 10:22
[2019-01-14] MEDS ORDERED: VANCOMYCIN 750 MG (PMX) 250 ML IVPB SCH (13:30)
--- NOTE | 2019-01-14 19:40 | DS ---
DATE OF ADMISSION: 01/11/2019 DATE OF DISCHARGE: 01/14/2019 DISCHARGE DIAGNOSES: 1. End-stage ovarian cancer. 2. Chronic debilitation. 3. Malnutrition. 4. Bilateral pleural effusions. HOSPITAL COURSE: A 48-year-old unfortunate female with end-stage ovarian cancer on hospice x1 week p rior to admission was brought in by family members with complaints of altered mentation and generaliz ed weakness. Chemotherapy has been discontinued as outpatient due to her rapid deterioration and wea kness. Initial evaluation revealed white blood cell count of 28,000. No source of infection was brii ntified. Despite several days of broad spectrum IV antibiotics, white blood cell count continued to increase. Blood cultures showed no growth and urine culture grew only 10,000 to 20,000 colonies of S taph aureus and 10,000 to 20,000 colonies of Olive albicans. I had multiple discussions with the f santoy members including her sister and son. I highly recommended home hospice. Family members were agreeable. The patient is being discharged home in the care of hospice. Dictated By: VIKTOR LEACH/ANDREW Conf#: [id number] DID#: [id number]
== END 2019-01-14 15:12 | disposition hospice, home (50) | DRG 689 ==
LOC: E/R 12:51 → TEL 16:40
PROVIDERS: ADMIT Internal Medicine; ATTEND Internal Medicine
DX: N39.0 Urinary tract infection, site not specified (principal); E43 Unspecified severe protein-calorie malnutrition; C56.9 Malignant neoplasm of unspecified ovary; J90 Pleural effusion, not elsewhere classified; Z66 Do not resuscitate; E87.6 Hypokalemia; R53.81 Other malaise
CPT/HCPCS: 36415; 36430; 71045; 80048; 80053; 81001; 83605; 84484; 85025; 86850; 86900; 86901; 86920; 87086; 96374; 96375; J0692; J1170; J2405; J2543; J3370; J7030; J7042; J7050; P9016